=== PATIENT | male | born 1990 | race American Indian/Alaskan Native ===

== ENCOUNTER 2016-09-04 16:03 | Inpatient (IN) | payer OTHER ==
[2016-09-04] MEDS ORDERED: CARDENE DRIP 40 MG/200 ML 200 ML ONE (16:12)
[2016-09-04] MEDS: CARDENE DRIP 40 MG/200 ML 200 ML IV SCH (16:16)
[2016-09-04] MEDS ORDERED: ATIVAN ONE (16:22)
[2016-09-04] MEDS ORDERED: ATIVAN IV ONE ×2 (16:24→16:30)
[2016-09-04] MEDS ORDERED: VASELINE LIP THERAPY TP PRN (16:24)
[2016-09-04] MEDS ORDERED: KEPPRA 1,000 MG/NS 0.75% 100ML 100 ML IV ONE ×2 (16:26→16:28)
[2016-09-04] MEDS ORDERED: DILAUDID IV ONE (16:28)
[2016-09-04 16:38] LABS: Basophils % (Auto) 0.3 % (0.0-1.8); Eosinophils % (Auto) 3.5 % (0.0-4.3); Hematocrit 37.5 % (35.5-45.6); Hemoglobin 12.1 gm/dl (11.8-15.2); Mean Corpuscular HGB Conc 32 % (32-34); Mean Corpuscular Hemoglobin 27 pg (28-32); Mean Corpuscular Volume 84 fl (84-94); Platelet Count 298 K/mm3 (140-440); Red Blood Count 4.45 M/mm3 (3.65-5.03); Red Cell Distribution Width 14.6 % (13.2-15.2); White Blood Count 11.9 K/mm3 (4.5-11.0)
--- NOTE | 2016-09-04 16:39 | Emergency Department Report ---
ED Seizure HPI - General Chief Complaint: Seizure Stated Complaint: SEIZURE Time Seen by Provider: 09/04/16 16:15 Source: EMS Mode of arrival: Stretcher Limitations: Altered Mental Status - History of Present Illness Initial Comments: Patient is a 25-year-old male with history of hypertension, seizure disorder noncompliant on medications brought in by ambulance due to a seizure. Upon EMS arrival patient was found to be post total, not at his baseline of walking and talking, as soon as they arrived to the ER the patient had another tonic-clonic seizure witnessed by staff. Upon my assessment patient was not having tonic- clonic seizure and had just received 2 mg of Ativan however she did have right- sided gaze deviation. He was completely unresponsive at this time and was making sonorous upper airway sounds, drooling and had no gag reflex. Patient was intubated for airway protection. - Related Data Home Medications Medication Instructions Recorded Confirmed Last Taken Metoprolol [Lopressor] 100 mg PO BID 09/04/16 09/04/16 Unknown NIFEdipine [Nifedipine ER] 60 mg PO BID 09/04/16 09/04/16 Unknown Allergies Allergy/AdvReac Type Severity Reaction Status Date / Time No Known Allergies Allergy Verified 08/10/16 16:44 ED Review of Systems ROS: Stated complaint: SEIZURE Other details as noted in HPI Comment: Unobtainable due to pts medical conditions ED Past Medical Hx - Past Medical History Previous Medical History?: Yes Hx Hypertension: Yes Hx Asthma: Yes - Surgical History Past Surgical History?: Yes Additional Surgical History: UNKNOWN - Social History Smoking Status: Never Smoker - Medications Home Medications: Home Medications Medication Instructions Recorded Confirmed Last Taken Type Metoprolol [Lopressor] 100 mg PO BID 09/04/16 09/04/16 Unknown History NIFEdipine [Nifedipine ER] 60 mg PO BID 09/04/16 09/04/16 Unknown History ED Physical Exam - General Limitations: Altered Mental Status General appearance: alert - Eye Eye exam: Present: other (right-sided gaze deviation, pupils pinpoint) - ENT ENT exam: Present: mucous membranes moist, other (sonorous upper airway sounds, large amount of saliva in the oropharynx and coming out of the mouth) - Neck Neck exam: Absent: meningismus - Respiratory Respiratory exam: Present: normal lung sounds bilaterally. Absent: respiratory distress - Cardiovascular Cardiovascular Exam: Present: regular rate, normal rhythm - GI/Abdominal GI/Abdominal exam: Present: soft. Absent: distended, tenderness - Neurological Exam Neurological exam: Present: other (unresponsive) - Skin Skin exam: Present: intact ED Course Vital Signs 09/04/16 09/04/16 09/04/16 16:08 16:24 16:31 Temperature 98.1 F Pulse Rate 125 H 140 H 137 H Respiratory 16 16 Rate Blood Pressure 243/157 205/122 Blood Pressure 239/170 [Left] O2 Sat by Pulse 100 100 100 Oximetry 09/04/16 09/04/16 09/04/16 16:34 17:00 17:06 Temperature Pulse Rate 92 H 139 H 129 H Respiratory 26 H 23 20 Rate Blood Pressure 192/102 192/102 Blood Pressure [Left] O2 Sat by Pulse 100 100 Oximetry 09/04/16 09/04/16 09/04/16 17:16 17:48 17:58 Temperature Pulse Rate 121 H 120 H 119 H Respiratory 17 13 18 Rate Blood Pressure 162/86 162/86 164/91 Blood Pressure [Left] O2 Sat by Pulse 98 100 Oximetry 09/04/16 09/04/16 09/04/16 18:00 18:13 18:15 Temperature Pulse Rate 119 H 120 H Respiratory 17 16 16 Rate Blood Pressure 164/88 165/96 Blood Pressure [Left] O2 Sat by Pulse 100 99 100 Oximetry 09/04/16 09/04/16 09/04/16 18:30 18:38 18:45 Temperature Pulse Rate 120 H 120 H 120 H Respiratory 16 18 19 Rate Blood Pressure 162/91 162/91 166/92 Blood Pressure [Left] O2 Sat by Pulse 100 100 Oximetry 09/04/16 09/04/16 09/04/16 18:53 19:00 19:06 Temperature Pulse Rate 120 H 121 H 122 H Respiratory 17 17 16 Rate Blood Pressure 166/92 169/104 169/104 Blood Pressure [Left] O2 Sat by Pulse 100 100 Oximetry 09/04/16 09/04/16 09/04/16 19:11 19:15 19:16 Temperature 98.7 F Pulse Rate 122 H 120 H 122 H Respiratory 16 18 Rate Blood Pressure 159/87 166/104 Blood Pressure 169/104 [Left] O2 Sat by Pulse 99 99 100 Oximetry 09/04/16 09/04/16 09/04/16 19:30 19:45 20:00 Temperature Pulse Rate 118 H 118 H 119 H Respiratory 17 17 17 Rate Blood Pressure 159/84 157/83 156/88 Blood Pressure [Left] O2 Sat by Pulse 100 Oximetry 09/04/16 09/04/16 09/04/16 20:05 20:15 20:30 Temperature Pulse Rate 118 H 120 H 118 H Respiratory 20 16 17 Rate Blood Pressure 163/93 155/79 Blood Pressure 157/63 [Left] O2 Sat by Pulse 100 99 100 Oximetry 09/04/16 09/04/16 09/04/16 20:45 20:56 21:00 Temperature Pulse Rate 118 H 116 H 118 H Respiratory 17 20 18 Rate Blood Pressure 153/81 151/77 Blood Pressure 152/82 [Left] O2 Sat by Pulse 100 100 100 Oximetry 09/04/16 09/04/16 09/04/16 21:15 21:30 21:45 Temperature Pulse Rate 118 H 117 H 118 H Respiratory 17 18 18 Rate Blood Pressure 145/84 155/78 152/82 Blood Pressure [Left] O2 Sat by Pulse 100 100 Oximetry 09/04/16 09/04/16 09/04/16 22:00 22:15 22:30 Temperature Pulse Rate 116 H 117 H 117 H Respiratory 18 18 15 Rate Blood Pressure 153/81 152/80 156/87 Blood Pressure 152/83 [Left] O2 Sat by Pulse 100 100 Oximetry 09/04/16 09/04/16 09/04/16 22:45 23:20 23:30 Temperature Pulse Rate 117 H 120 H Respiratory 18 19 Rate Blood Pressure 152/83 169/87 Blood Pressure [Left] O2 Sat by Pulse 100 100 100 Oximetry 09/04/16 23:35 Temperature Pulse Rate 117 H Respiratory 20 Rate Blood Pressure Blood Pressure 156/87 [Left] O2 Sat by Pulse 100 Oximetry - Reevaluation(s) Reevaluation #1: 09/04/16 18:03 Initial labs show a very low magnesium and phosphorus, this may be a lab error but will empirically treat as this could be the cause of the patient's seizure. Patient's repeat labs showed a high magnesium and phosphate. The patient was receiving a treatment of magnesium and potassium phosphate at the time so it is unclear whether these electrolytes are actually higher low and the patient. Magnesium treatment is finished and potassium phosphate has been held with what we can redraw labs to find out the true electrolyte values. 09/06/16 02:46 Reevaluation #2: 09/04/16 19:09 Patient reexamined, bp stable with systolics in the 160s; no gaze deviation, no signs of seizure on exam - Intubation Time Out Performed: Yes Sedative: Etomidate Paralytic: Succinylcholine Laryngoscope: Marga Size: 3 ET Tube Size: 7.5 Tube Secured Depth (cm): 22 Tube Secured Location: lips Tube Placement Confirmation: visualized tube passing t, equal breath sounds bilat, no breath sounds over epi, confirmation by capnometr Patient Tolerated Procedure: well Intubation Complications: none ED Medical Decision Making - Lab Data Result diagrams: 09/05/16 04:36 09/05/16 04:36 - Medical Decision Making Patient seen immediately upon arrival into the room, intubated for airway protection, placed on a monitor, 2 large-bore IVs placed, one absent, Cardene and Ativan drip ordered, dilaudid of given for pain, will do a CT of head as well as Critical Care Time: Yes Critical care time in (mins) excluding proc time.: 30 Critical care attestation.: If time is entered above; I have spent that time in minutes in the direct care of this critically ill patient, excluding procedure time. ED Disposition Clinical Impression: Status epilepticus, Hypokalemia, Hypertensive emergency Disposition: OP ADMITTED IP TO THIS HOSP Is pt being admited?: Yes Does the pt Need Aspirin: No Condition: Critical Time of Disposition: 19:09
[2016-09-04] MEDS: ATIVAN 100 MG in NACL 0.9% 50 ML, VIAFLEX EMPTY CONTAINER 0 ML IV SCH (16:45)
[2016-09-04 16:54] LABS: Phosphorous < 0.3 mg/dL (2.5-4.5)
[2016-09-04 16:55] LABS: Alanine Aminotransferase 9 units/L (7-56); Albumin 3.8 g/dL (3.9-5); Alkaline Phosphatase 89 units/L (35-129); Anion Gap 38 mmol/L; Bilirubin,Direct < 0.2 mg/dL (0-0.2); Bilirubin,Indirect 0.5 mg/dL; Bilirubin,Total 0.7 mg/dL (0.1-1.2); Blood Urea Nitrogen 12 mg/dL (9-20); Calcium 9.3 mg/dL (8.4-10.2); Carbon Dioxide 13 mmol/L (22-30); Chloride 92.4 mmol/L (98-107); Glucose 145 mg/dL (75-100); Magnesium 0.2 mg/dL (1.7-2.3); Sodium 141 mmol/L (137-145); Total Protein 7.7 g/dL (6.3-8.2)
[2016-09-04 16:56] LABS: Potassium 2.8 mmol/L (3.6-5.0)
[2016-09-04] MEDS ORDERED: MAGNESIUM SULFATE 2GM/50ML 50 ML IV ONE (17:02)
[2016-09-04] MEDS ORDERED: CITRATE OF MAGNESIA PO ONE (17:05)
[2016-09-04 17:21] LABS: ISTAT Base Excess 2; ISTAT HCO3 26.6; ISTAT PCO2 44.3 (35-45); ISTAT PH 7.386 (7.35-7.45); ISTAT PO2 328 (80-105); ISTAT SO2 100; ISTAT TCO2 28
[2016-09-04] MEDS ORDERED: KPHOS 45 MMOL in NACL 0.9% 500 ML 500 ML IV ONE (17:30)
[2016-09-04 17:45] LABS: BUN/Creatinine Ratio 10.83; Blood Urea Nitrogen 13 mg/dL (9-20); Calcium 8.9 mg/dL (8.4-10.2); Carbon Dioxide 24 mmol/L (22-30); Chloride 89.6 mmol/L (98-107); Glucose 179 mg/dL (75-100); Magnesium 4.5 mg/dL (1.7-2.3); Phosphorous 2.7 mg/dL (2.5-4.5); Sodium 133 mmol/L (137-145)
[2016-09-04 17:49] LABS: Anion Gap 22 mmol/L; Potassium 2.9 mmol/L (3.6-5.0)
--- NOTE | 2016-09-04 18:15 | Cat Scan Report ---
FINAL REPORT EXAM: CT HEAD/BRAIN WO CON HISTORY: sz bp 222/162 TECHNIQUE: Noncontrast serial axial images from skull base to vertex. PRIORS: CT scan of the head from 08/13/2016 FINDINGS: There is no mass effect or midline shift. There are no abnormal intra or extra-axial fluid collections. Cortical sulci and lateral ventricles are within normal limits for size and configuration. Basilar cisterns are patent. No acute intracranial hemorrhage is identified. Areas of relative hypodensity are seen in the cortex and subcortical white matter of the parietal and occipital lobes. Visualized paranasal sinuses and mastoid air cells are well aerated. No acute osseous abnormality is identified. There is a punctate metallic foreign body in the scalp over the right frontal convexity. Nasogastric tube and endotracheal tube are noted in the seismic computer image. IMPRESSION: 1. No abnormal mass or acute intracranial hemorrhage is identified. 2. Areas of relative hypodensity are seen in the cortex and subcortical white matter of the parietal and occipital lobes. This could be related to posterior reversible encephalopathy syndrome in the proper clinical setting. The patient can be further assessed with MRI.
--- NOTE | 2016-09-04 18:29 | Admit Criteria Form ---
Admission Criteria Documentation: SEIZURE Clinical Indications for Admission to Inpatient Care (Place 'X' for any and all applicable criteria): Admission is indicated for seizure and ANY ONE of the following(1)(2)(3)(4)(5): [X]I. Inpatient admission required rather than observation care (Also use Seizure: Observation Care Criteria as appropriate) because of ANY ONE of the following: [X]a) Altered mental status that is severe or persistent [ ]b) New focal neurologic deficit that is severe or persistent [X]c) Metabolic disorder (eg, hypoglycemia, hyponatremia) that is severe or persistent [X]d) Recurrent seizure [ ]e) Outpatient antiseizure regimen cannot be established (eg , patient cannot tolerate medication, initiation requires inpatient care) [ ]f) Need for ongoing intravenous infusion of antiseizure medication [ ]g) Cardiac arrhythmias of immediate concern [ ]h) Cerebral bleeding, hydrocephalus, or vasospasm monitoring (14) [ ]i) Increased intracranial pressure or cerebral edema monitoring (15) [ ]j) Other treatment or monitoring requiring inpatient admission [ ]II. Status epilepticus [A] or repetitive seizures not controlled with emergent treatment (6)(8) [ ]III. Brain disorder (eg, tumor, edema, and hydrocephalus) that requiring monitoring or intervention available only at inpatient level of care. [ ]IV. Brain insult (eg, severe trauma, stroke, drug toxicity, or withdrawal) that requires monitoring or intervention available only at inpatient level of care (10)(11) Extended stay beyond goal length of stay may be needed for (22) [ ]a) Complications of status epilepticus [ ]b) Refractory status epilepticus [ ]c) Etiology-specific therapy for conditions such as [employer] infection, head injury,eclampsia, severe metabolic abnormalities, and brain tumor [ ]d) Residual neurologic damage, [ ]e) Initiation of significant change to anticonvulsant treatment [ ]f) Older patients (65 years or older) [ ]g) Patient requiring intubation (eg, to protect airway) The original [facility] [employer] content created by [facility] [employer] has been revised. The portions of the content which have been revised are identified through the use of italic text or in bold, and [facility] has neither reviewed nor approved the modified material. All other unmodified content is copyright [facility]. Please see references footnoted in the original [facility] edition 2016 Admission Criteria Met: Yes
[2016-09-04 18:32] LABS: Urine Drugs of Abuse Note Disclamer
[2016-09-04 18:51] LABS: Bilirubin,Urine NEG (Negative); Blood,Urine SM (Negative); Granular Casts,Urine 6 /LPF; Ketones,Urine NEG (Negative); Leukocyte Esterase,Urine NEG (Negative); Mucus,Urine FEW /HPF; Nitrite,Urine NEG (Negative)
[2016-09-04 18:52] LABS: BUN/Creatinine Ratio 10.76; Blood Urea Nitrogen 14 mg/dL (9-20); Calcium 9.2 mg/dL (8.4-10.2); Carbon Dioxide 27 mmol/L (22-30); Chloride 94.4 mmol/L (98-107); Glucose 164 mg/dL (75-100); Magnesium 3.4 mg/dL (1.7-2.3); Sodium 137 mmol/L (137-145)
[2016-09-04 18:54] LABS: Anion Gap 19 mmol/L; Potassium 2.9 mmol/L (3.6-5.0)
[2016-09-04 18:54] LABS: Protein,Urine >500 mg/dL (Negative)
--- NOTE | 2016-09-04 20:50 | Event Note ---
Date: 09/04/16 See H/p in reports Status epilepticus Encephalopathy S/p intubation for airway protection
[2016-09-04] MEDS ORDERED: ALUM-MAG HYDROX-SIMETH 200-200-20MG/5ML PO PRN (20:52)
[2016-09-04] MEDS ORDERED: SIMPLE SYRUP FEEDTUBE PRN ×2 (20:52)
[2016-09-04] MEDS ORDERED: PANCREAZE DR 10,500 UNIT FEEDTUBE PRN (20:52)
[2016-09-04] MEDS ORDERED: DULCOLAX PR PRN (20:52)
[2016-09-04] MEDS ORDERED: SODIUM BICARBONATE FEEDTUBE PRN (20:52)
[2016-09-04] MEDS ORDERED: DILAUDID IV PRN (20:52)
[2016-09-04] MEDS ORDERED: MILK OF MAGNESIA PO PRN (20:52)
[2016-09-04] MEDS ORDERED: KPHOS 40 MMOL in NACL 0.9% 500 ML 500 ML IV ONE (21:02)
--- NOTE | 2016-09-05 01:51 | History and Physical Report ---
CHIEF COMPLAINT: 1. Persistent seizures. 2. Altered mental status. HISTORY OF PRESENT ILLNESS: A 25-year-old -[place] male with a history of hypertension, seizure disorder, and noncompliant with medication, brought in secondary to persistent seizures. The patient was found to be in altered mental status. The patient was brought to the ER because of the altered mental status and in the ER, the patient had persistent tonic-clonic seizures and because of which the patient was intubated for protection of airway. Also his blood pressure was very high at 240/140. The patient had a tendency to aspirate and hence the intubation for airway protection. No fever, no chills. PAST MEDICAL HISTORY: Hypertension and seizure disorder. Also asthma. CURRENT MEDICATIONS: Metoprolol 100 mg b.i.d. and nifedipine 60 mg p.o. b.i.d. PAST SURGICAL HISTORY: None. SOCIAL HISTORY: Does not smoke. No alcohol, no recreational drugs. FAMILY HISTORY: Significant for hypertension. REVIEW OF SYSTEMS: CONSTITUTIONAL: No weight loss, no weight gain. Persistent seizures. HEENT: No sore throat. No postnasal drip. CARDIOVASCULAR AND RESPIRATORY SYSTEM: No shortness of breath, no chest pain, no palpitations. No cough. GASTROINTESTINAL SYSTEM: No nausea, no vomiting, no diarrhea. MUSCULOSKELETAL SSTEM: No joint pains. CENTRAL NERVOUS SYSTEM: Persistent seizures. Altered sensorium. SKIN: No rashes. A 14-point review of systems, essentially negative. PHYSICAL EXAMINATION: GENERAL: Young male, intubated. VITAL SIGNS: Blood pressure 243/157, pulse is 125, respiratory rate is 16, and sats 100%. HEENT: Unremarkable. Pupils are equal and reactive. ET tube in place. NECK: Supple, no lymphadenopathy, no thyromegaly, no carotid artery bruit. LUNGS: Clear to auscultation and percussion. Good air entry. CARDIOVASCULAR: S1, S2 heard. No gallop, no murmur, no rub. Apical impulse in left fifth intercostal space, in midclavicular line. ABDOMEN: Soft and benign. No hepatosplenomegaly. No guarding, no rigidity. Hernial orifices are normal. EXTREMITIES: Good pedal pulses. No pedal edema. CENTRAL NERVOUS SYSTEM: Unresponsive. SKIN: Normal. LABORATORY DATA: White count is 11,900, H and H are 12.1 and 37.5, and platelet count is 298,000. Sodium is 137, potassium is 2.9, chloride is 94.4, glucose is 164, phosphorus is low at 3.60, and magnesium is 3.4. Lactic acid is 1.0. ABG is significant for pH of 7.38, pCO2 of 44.3, pO2 of 328, and bicarbonate of 26. Head CT was negative. Head CT showed no abnormal mass or acute intracranial hemorrhage identified. hypodensity in the cortex and subcortical white matter of the parietal and occipital lobes, this could be related to posterior reversible encephalopathy syndrome. Needs MRI. ASSESSMENT AND PLAN: 1. Status epilepticus. The patient was started on IV Keppra 1000 mg q. 12 hours and also IV Ativan. Should be sufficient to control his seizures. The patient is not having any seizures at this point 2. Hypertensive emergency. The patient is on Cardene drip. P.o. medications are on hold. We will add Catapres TTS-3 patch. 3. Hypokalemia, being supplemented. 4. Hypophosphatemia, being supplemented. 5. Airway protection. The patient is intubated for airway protection. Continue vent management. 6. Neurology and critical care consults placed. ____ and Dr. Kelley consulted. 5. Deep venous thrombosis prophylaxis, Lovenox 40 mg subcutaneous daily. CRITICAL CARE STATEMENT: High probability of clinically significant sudden or life threatening deterioration of cardiopulmonary and neurological systems requiring my full and direct attention, intervention and personal management. The aggregate critical care time was 38 minutes. At this time is in addition to time spent performin. Requested procedures. 2. Data review and interpretation. 3. The patient's assessment and monitoring of vital signs. 4. Documentation. 5. Medication orders and management. Time spent was 38 minutes. JOB# [id number] VSM/NTS
[2016-09-05] MEDS: ATIVAN 100 MG in NACL 0.9% 50 ML, VIAFLEX EMPTY CONTAINER 0 ML IV SCH ×2 (02:43→10:57)
[2016-09-05] MEDS: D5/0.45NS 1,000 ML IV SCH (02:46)
[2016-09-05 05:00] LABS: Basophils % (Auto) 0.4 % (0.0-1.8); Eosinophils % (Auto) 1.5 % (0.0-4.3); Hematocrit 30.2 % (35.5-45.6); Hemoglobin 10.2 gm/dl (11.8-15.2); Mean Corpuscular HGB Conc 34 % (32-34); Mean Corpuscular Hemoglobin 28 pg (28-32); Mean Corpuscular Volume 81 fl (84-94); Platelet Count 269 K/mm3 (140-440); Red Blood Count 3.71 M/mm3 (3.65-5.03); Red Cell Distribution Width 14.6 % (13.2-15.2); White Blood Count 10.7 K/mm3 (4.5-11.0)
[2016-09-05 05:25] LABS: Alanine Aminotransferase 9 units/L (7-56); Albumin 3.1 g/dL (3.9-5); Albumin/Globulin Ratio 0.9 %; Alkaline Phosphatase 75 units/L (35-129); BUN/Creatinine Ratio 13.07; Bilirubin,Total 0.4 mg/dL (0.1-1.2); Blood Urea Nitrogen 17 mg/dL (9-20); Calcium 8.5 mg/dL (8.4-10.2); Carbon Dioxide 26 mmol/L (22-30); Chloride 97.5 mmol/L (98-107); Glucose 156 mg/dL (75-100); Potassium 3.1 mmol/L (3.6-5.0); Sodium 138 mmol/L (137-145); Total Protein 6.6 g/dL (6.3-8.2)
[2016-09-05 05:26] LABS: Anion Gap 18 mmol/L
[2016-09-05 06:44] LABS: ISTAT Base Excess 4; ISTAT HCO3 28.2; ISTAT PCO2 42.3 (35-45); ISTAT PH 7.431 (7.35-7.45); ISTAT PO2 178 (80-105); ISTAT SO2 100; ISTAT TCO2 29
--- NOTE | 2016-09-05 07:57 | XRay Report ---
AP CHEST History: Endotracheal tube placement. Findings: Compared to 08/13/16. The endotracheal tube is in adequate position terminating 3.7 cm superior to the west. A nasogastric tube is also visualized which terminates in the midesophagus. Please correlate with imaging consider advancement versus replacement. Heart and mediastinal structures are within normal limits for the lungs are clear. Normal bony thorax. Impression: Adequate placement of the endotracheal tube. There appears to be a nasogastric tube which terminates in the midesophagus. Normal AP chest.
[2016-09-05] MEDS ORDERED: POTASSIUM CHLORIDE FEEDTUBE SCH (08:00)
[2016-09-05] MEDS: fentaNYL DRIP Premix 100 ML IV SCH ×2 (08:37→21:53)
[2016-09-05] MEDS ORDERED: PANCREAZE DR 10,500 UNIT FEEDTUBE PRN (09:00)
[2016-09-05] MEDS ORDERED: SIMPLE SYRUP FEEDTUBE PRN ×2 (09:00)
[2016-09-05] MEDS ORDERED: SODIUM BICARBONATE FEEDTUBE PRN (09:00)
[2016-09-05] MEDS: PEPCID IV SCH ×2 (09:07→21:57)
[2016-09-05] MEDS: POTASSIUM CHLORIDE FEEDTUBE SCH ×2 (09:07→12:39)
[2016-09-05] MEDS: LOVENOX SUB-Q SCH (09:13)
[2016-09-05] MEDS: CARDENE DRIP 40 MG/200 ML 200 ML IV SCH (10:41)
[2016-09-05] MEDS: KEPPRA 1,000 MG in D5W 100 ML IV SCH ×3 (10:48→21:56)
--- NOTE | 2016-09-05 11:19 | Consultation ---
History of Present Illness Consult date: 09/05/16 Requesting physician: PEDRO KEY History of present illness: PULMONARY/CCM CONSULT NOTE (Full dictation # [id number]) Please see dictated notes for full details Medications and Allergies Allergies Allergy/AdvReac Type Severity Reaction Status Date / Time No Known Allergies Allergy Verified 08/10/16 16:44 Home Medications Medication Instructions Recorded Confirmed Last Taken Type Metoprolol [Lopressor] 100 mg PO BID 09/04/16 09/04/16 Unknown History NIFEdipine [Nifedipine ER] 60 mg PO BID 09/04/16 09/04/16 Unknown History Active Meds: Active Medications Al Hydrox/Mg Hydrox/Simethicone (Alum-Mag Hydrox-Simeth [id number]/5ml) 30 ml PO Q4H PRN PRN Reason: Indigestion Lipase/Protease/Amylase (Pancreaze Dr 10,500 Unit) 1 each FEEDTUBE PRN PRN PRN Reason: For Clogged Feeding Tube Lipase/Protease/Amylase (Pancreaze 10,500 Unit) 1 each FEEDTUBE PRN PRN PRN Reason: For Clogged Feeding Tube Bisacodyl (Dulcolax) [address] QDAY PRN PRN Reason: constipation unrelieved by MOM Enoxaparin Sodium (Lovenox) 40 mg SUB-Q QDAY PAULA Last Admin: 09/05/16 09:13 Dose: 40 mg Famotidine (Pepcid) 20 mg IV BID PAULA Last Admin: 09/05/16 09:07 Dose: 20 mg Hydromorphone HCl (Dilaudid) 0.5 mg IV Q3HR PRN PRN Reason: Pain , Severe (7-10) Hydrophilic Ointment (Vaseline Lip Therapy) 1 applic TP Q2HR PRN PRN Reason: Dry Lips Lorazepam 100 mg/ Sodium Chloride/ Miscellaneous Information 100 mls @ 1 mls/ hr IV TITR PAULA; 1 MG/HR PRN Reason: Protocol Last Admin: 09/05/16 10:57 Dose: 7 mls/hr Nicardipine/Sodium Chloride (Cardene Drip 40 Mg/200 Ml) 200 mls @ 25 mls/hr IV TITR PAULA; 5 MG/HR PRN Reason: Protocol Last Admin: 09/05/16 10:41 Dose: 50 mls/hr Dextrose/Sodium Chloride (D5/0.45ns) 1,000 mls @ 75 mls/hr IV DIRECT PAULA Last Admin: 09/05/16 02:46 Dose: 75 mls/hr Levetiracetam 1,000 mg/ (Dextrose) 110 mls @ 400 mls/hr IV Q12HR PAULA Last Admin: 09/05/16 10:48 Dose: 400 mls/hr Fentanyl Citrate (Fentanyl Drip Premix) 100 mls @ 2.722 mls/hr IV TITR PAULA; 1 MCG/KG/HR PRN Reason: Protocol Last Admin: 09/05/16 08:37 Dose: 2.722 mls/hr Magnesium Hydroxide (Milk Of Magnesia) 30 ml PO Q4H PRN PRN Reason: Constipation Multi-Ingred Cream/Lotion/Oil/Oint (Artificial Tears Ophth Oint) 1 applic OU Q4HR PRN PRN Reason: Dry Eye(s) Potassium Chloride (Potassium Chloride) 40 meq FEEDTUBE Q4H PAULA Stop: 09/05/16 12:01 Last Admin: 09/05/16 09:07 Dose: 40 meq Simple Syrup (Simple Syrup) 15 ml FEEDTUBE PRN PRN PRN Reason: Hypoglycemia Simple Syrup (Simple Syrup) 30 ml FEEDTUBE PRN PRN PRN Reason: Hypoglycemia Simple Syrup (Simple Syrup) 15 ml FEEDTUBE PRN PRN PRN Reason: Hypoglycemia Simple Syrup (Simple Syrup) 30 ml FEEDTUBE PRN PRN PRN Reason: Hypoglycemia Sodium Bicarbonate (Sodium Bicarbonate) 325 mg FEEDTUBE PRN PRN PRN Reason: For Clogged Feeding Tube Sodium Bicarbonate (Sodium Bicarbonate) 325 mg FEEDTUBE PRN PRN PRN Reason: For Clogged Feeding Tube Physical Examination Vital signs: Vital Signs Pulse Resp BP Pulse Ox 125 H 16 243/157 100 09/04/16 16:08 09/04/16 16:08 09/04/16 16:08 09/04/16 16:08 Results - Laboratory Findings CBC and BMP: 09/05/16 04:36 09/05/16 04:36 ABG POC ABG pH 7.431 (7.35-7.45) 09/05/16 05:45 POC ABG pCO2 42.3 (35-45) 09/05/16 05:45 POC ABG pO2 178 (80-105) H 09/05/16 05:45 POC ABG HCO3 28.2 09/05/16 05:45 POC ABG Total CO2 29 09/05/16 05:45 POC ABG O2 Sat 100 09/05/16 05:45 Abnormal lab findings: Abnormal Labs 09/05/16 09/05/16 09/05/16 04:36 04:36 04:36 Hgb 10.2 L Hct 30.2 L D MCV 81 L D Lymph % (Auto) 12.0 L [place] % (Auto) 11.8 H [place] # 1.3 H Seg Neutrophils % 74.3 H Seg Neutrophils # 7.9 H POC ABG pO2 Potassium 3.1 L Chloride 97.5 L Glucose 156 H Phosphorus Magnesium 2.5 H Albumin 3.1 L 09/05/16 09/05/16 04:36 05:45 Hgb Hct MCV Lymph % (Auto) [place] % (Auto) [place] # Seg Neutrophils % Seg Neutrophils # POC ABG pO2 178 H Potassium Chloride Glucose Phosphorus 5.9 H D Magnesium Albumin
[2016-09-05] MEDS ORDERED: APRESOLINE IV PRN (12:30)
[2016-09-05] MEDS: DIPRIVAN 10 MG/ML 100 ML IV SCH (12:51)
[2016-09-05] MEDS ORDERED: CATAPRES PO SCH (14:00)
--- NOTE | 2016-09-05 14:05 | Consultation ---
CONSULTING PHYSICIAN: Rory Cunha MD REASON FOR CONSULTATION: Seizure disorder, acute respiratory failure, on the mechanical ventilator. CHIEF COMPLAINT AND HISTORY OF PRESENT ILLNESS: The patient is a 25-year-old -[place] male. Apparently, he has a past medical history of hypertension and seizure disorder, noncompliance with his medications. He was brought in by ambulance from reportedly a friend's place secondary to seizures. When he came into the ER, he was postictal and then reportedly had another tonic-clonic seizure. He was intubated for airway protection and admitted to the Intensive Care Unit. Blood pressures were significantly elevated at initial presentation. We are asked to assist with his management. When I stopped by to see him, he was on multiple sedatives secondary to severe agitation during sedation holidays. He was on 4-point restraints. He was on Ativan about 5 mg per hour and had been on fentanyl at 1 mcg/kg per hour, but is being titrated downwards now. He was on about 10 mg earlier. I do not have any history of vomiting or overt aspiration. With regards to the patient's tobacco use/abuse history, he is reported as a never smoker. This really is as much of the history of presentation as I have. PAST MEDICAL HISTORY: Seizure disorder, hypertension according to the records. PAST SURGICAL HISTORY: Unknown. MEDICATIONS: He was on at the time I stopped by to see him, according to the medication administration record includes the following: He was on Lovenox 40 mg subcutaneous daily. He was on dextrose half NS at 75 mL per hour. He was on the fentanyl drip at 1 mcg/kg per hour. He was on Dilaudid 0.5 mg IV q. 3 hours p.r.n. He was on Keppra 1 gram IV q. 12 hours. He was on lorazepam drip at 5 mg an hour. He was on nicardipine at 10 mg an hour. ALLERGIES: No known drug allergies. DIET: Thin gentleman, acute weight loss or gain history is unknown. FAMILY AND SOCIAL HISTORY: Apparently, lives in the community. According to the records, no tobacco use or abuse. Illicit drug use or abuse history is unknown. REVIEW OF SYSTEMS: Unobtainable secondary to the patient's medical and mental condition since he has been here. He has had witnessed seizures; however, no gross hematochezia or melena, no gross hematuria, no hematemesis, no bloody tracheal secretions. PHYSICAL EXAMINATION: VITAL SIGNS: At presentation in the Emergency Room, he was afebrile, temperature 98.1, pulse was 125, respiratory rate was 16, blood pressure was 243/157, oxygen sats were 100%, inspired oxygen concentration was not recorded. HEAD, EYES, EARS, NOSE, AND THROAT: Pupils were equal, round, about 2 mm, very sluggishly reactive to light. Extraocular muscle movements could not be assessed. Endotracheal tube was in place, taped at the lips around 22 cm. NECK: Grossly, there were no palpable lymph nodes in the supraclavicular or submandibular lymph node chains. LUNGS: Auscultation of the lungs unremarkable. They were clear bilaterally. HEART: Heart sounds 1 and 2 are heard. Regular tachycardia at the time of my evaluation. ABDOMEN: Soft, flat. Bowel sounds are positive. Did not appear tender. EXTREMITIES: Without overt digital clubbing, cyanosis, or pedal edema. NEUROLOGIC: The exam was grossly nonfocal. LABORATORY DATA: From my review are as follows: White cell count 11,900 at presentation with a hemoglobin of 12.1, hematocrit of 37.5, and platelets 298. Arterial blood gas showed a pH of 7.39, pCO2 of 44, pO2 of 328 that was on 60% FiO2. He is currently on assist control, tidal volumes 450, rate 15, PEEP of 5. Serum sodium was 137, potassium 2.9, chloride 94, bicarbonate 27, BUN 14, creatinine 1.3, and glucose of 164. Lactic acid level was within normal limits. Liver function tests essentially within normal limits. Urinalysis was unremarkable. Urine drug screen presumptive positive for tetrahydrocannabinol. Tylenol, aspirin, and alcohol levels undetectable. Radiographic studies have been reviewed. I have also reviewed the radiologist's interpretation. CT scan mentions relative hypodensities in the cortex and subcortical white matter of the parietal and occipital lobes and recommend possible MRI. Chest x-ray is unremarkable. ET tube is, however, a little high, tip appears to be at the upper border of the clavicular heads. No gross pneumothorax, no gross bony fracture. ASSESSMENT AND PLAN: We have a young gentleman in with hypertensive emergency, but also with history of seizures. It is unclear if these seizures are related to the hypertension or if he has two separate pathologies. Respiratory king, we will keep him on full mechanical ventilatory support while we sort out his sedation issues and then begin weaning as soon as possible. There does not appear to be a primary pulmonary pathology in this case here, so hopefully should wean without trouble once we can get his mental status controlled. Aspiration precautions and other ventilator bundles will be instituted. We will advance the ET tube about 2 cm. From a cardiovascular standpoint, the Cardene drip will continue, we will reintroduce some of his old home medications as well as begin clonidine 0.1 mg p.o. q. 8 hours t.i.d., p.o. meds via the feeding tube obviously. We will wean him off the Cardene as long as systolics are less than 160-170 mmHg. I will change to a propofol drips that a good Neurology evaluation could be done when the neurologist does show up. It should also help with his blood pressure issues a little bit and Cardiology evaluation will be at the behest of the attending physician. From a GI and nutritional standpoint, oral nutrition will be the feeding modality of choice. He will be placed on GI prophylaxis. Aspiration precautions will be maintained. From a renal standpoint, no major electrolyte abnormalities. The potassium is being replaced. The hypokalemia does suggest a possible endocrine reason for his hypertension which perhaps primary aldosteronism or other etiology and he may benefit from an outpatient nephrology workup. We will follow him clinically otherwise. Inputs and outputs are being monitored. From an infectious disease standpoint, no signs and symptoms of overwhelming sepsis. No acute indication for antibiotics. We will follow him clinically. From a neurologic standpoint, Neurology has been consulted. He is on Keppra. An EEG will be ordered and we will defer to Neurology, CT of the brain findings were described above. From a general and hospital healthcare maintenance standpoint, we are going to put him on GI and DVT prophylaxis. Flu and pneumonia vaccination will be per protocol. Thank you very much for the consult Dr. Marcus. We will follow along and make further recommendations as picture progresses/becomes clearer. At this point, I have spent about 30-35 minutes of critical care time without overlap, excluding any procedural time that may be necessary. He is critically ill on life-sustaining interventions including mechanical ventilatory support at high risk for further deterioration including . JOB# [id number] JOSE ALEJANDRO/ADEN
[2016-09-05] MEDS ORDERED: AMIDATE IV ONE (15:21)
[2016-09-05] MEDS ORDERED: QUELICIN ONE (15:21)
--- NOTE | 2016-09-05 18:05 | Progress Note ---
Assessment and Plan Assessment and plan: Acute respiratory failure 2/2 seizure disorder - intubated and mechanically ventilated - Patient is on Keppra - Neurology consult placed Hypertensive emergency - Patient is on IV control blood pressure - IV hydralazine, clonidine - We will monitor Hypokalemia - Repleted Disposition - Continue ICU care History Interval history: Patient was intubated and mechanically ventilated. Hospitalist Physical - Physical exam Narrative exam: On mechanical ventilation, sedated. The patient appeared well nourished and normally developed. Vital signs as documented. Head exam is unremarkable. No scleral icterus . Neck is without jugular venous distension, thyromegaly, or carotid bruits. Lungs are clear to auscultation. Cardiac exam reveals regular rate and Rhythm. First and second heart sounds normal. No murmurs, rubs or gallops. Abdominal exam reveals normal bowel sounds, no masses, no organomegaly and no aortic enlargement. Extremities are nonedematous and both femoral and pedal pulses are normal. IMPRESS ASSOCIATE: sedated. - Constitutional Vitals: Temp Pulse Resp BP Pulse Ox 98.8 F 110 H 17 146/88 98 09/05/16 16:00 09/05/16 16:15 09/05/16 14:15 09/05/16 16:15 09/05/16 16:15 Results - Labs CBC & Chem 7: 09/05/16 04:36 09/05/16 04:36 Labs: Laboratory Last Values WBC 10.7 K/mm3 (4.5-11.0) 09/05/16 04:36 RBC 3.71 M/mm3 (3.65-5.03) 09/05/16 04:36 Hgb 10.2 gm/dl (11.8-15.2) L 09/05/16 04:36 Hct 30.2 % (35.5-45.6) L D 09/05/16 04:36 MCV 81 fl (84-94) L D 09/05/16 04:36 MCH 28 pg (28-32) 09/05/16 04:36 MCHC 34 % (32-34) 09/05/16 04:36 RDW 14.6 % (13.2-15.2) 09/05/16 04:36 Plt Count 269 K/mm3 (140-440) 09/05/16 04:36 Lymph % (Auto) 12.0 % (13.4-35.0) L 09/05/16 04:36 Long % (Auto) 11.8 % (0.0-7.3) H 09/05/16 04:36 Eos % (Auto) 1.5 % (0.0-4.3) 09/05/16 04:36 Baso % (Auto) 0.4 % (0.0-1.8) 09/05/16 04:36 Lymph # 1.3 K/mm3 (1.2-5.4) 09/05/16 04:36 Long # 1.3 K/mm3 (0.0-0.8) H 09/05/16 04:36 Eos # 0.2 K/mm3 (0.0-0.4) 09/05/16 04:36 Baso # 0.0 K/mm3 (0.0-0.1) 09/05/16 04:36 Seg Neutrophils % 74.3 % (40.0-70.0) H 09/05/16 04:36 Seg Neutrophils # 7.9 K/mm3 (1.8-7.7) H 09/05/16 04:36 POC ABG pH 7.431 (7.35-7.45) 09/05/16 05:45 POC ABG pCO2 42.3 (35-45) 09/05/16 05:45 POC ABG pO2 178 (80-105) H 09/05/16 05:45 POC ABG HCO3 28.2 09/05/16 05:45 POC ABG Total CO2 29 09/05/16 05:45 POC ABG O2 Sat 100 09/05/16 05:45 POC ABG Base Excess 4 09/05/16 05:45 FiO2 35 % 09/05/16 05:45 Sodium 138 mmol/L (137-145) 09/05/16 04:36 Potassium 3.1 mmol/L (3.6-5.0) L 09/05/16 04:36 Chloride 97.5 mmol/L (98-107) L 09/05/16 04:36 Carbon Dioxide 26 mmol/L (22-30) 09/05/16 04:36 Anion Gap 18 mmol/L 09/05/16 04:36 BUN 17 mg/dL (9-20) 09/05/16 04:36 Creatinine 1.3 mg/dL (0.8-1.5) 09/05/16 04:36 Estimated GFR > 60 ml/min 09/05/16 04:36 BUN/Creatinine Ratio 13.07 % 09/05/16 04:36 Glucose 156 mg/dL (75-100) H 09/05/16 04:36 Lactic Acid 1.0 mmol/L (0.7-2.0) 09/04/16 21:09 Calcium 8.5 mg/dL (8.4-10.2) 09/05/16 04:36 Phosphorus 5.9 mg/dL (2.5-4.5) H D 09/05/16 04:36 Magnesium 2.5 mg/dL (1.7-2.3) H 09/05/16 04:36 Total Bilirubin 0.4 mg/dL (0.1-1.2) 09/05/16 04:36 Direct Bilirubin < 0.2 mg/dL (0-0.2) 09/04/16 16:20 Indirect Bilirubin 0.5 mg/dL 09/04/16 16:20 AST 15 units/L (5-40) 09/05/16 04:36 ALT 9 units/L (7-56) 09/05/16 04:36 Alkaline Phosphatase 75 units/L (35-129) 09/05/16 04:36 Total Protein 6.6 g/dL (6.3-8.2) 09/05/16 04:36 Albumin 3.1 g/dL (3.9-5) L 09/05/16 04:36 Albumin/Globulin Ratio 0.9 % 09/05/16 04:36 TSH 2.280 mlU/mL (0.270-4.200) 09/04/16 16:20 Urine Color Yellow (Yellow) 09/04/16 16:31 Urine Turbidity Clear (Clear) 09/04/16 16:31 Urine pH 6.0 (5.0-7.0) 09/04/16 16:31 Ur Specific [place] 1.018 (1.003-1.030) 09/04/16 16:31 Urine Protein >500 mg/dL (Negative) 09/04/16 16:31 Urine Glucose (UA) Neg mg/dL (Negative) 09/04/16 16:31 Urine Ketones Neg mg/dL (Negative) 09/04/16 16:31 Urine Blood Sm (Negative) 09/04/16 16:31 Urine Nitrite Neg (Negative) 09/04/16 16:31 Urine Bilirubin Neg (Negative) 09/04/16 16:31 Urine Urobilinogen 4.0 mg/dL (<2.0) 09/04/16 16:31 Ur Leukocyte Esterase Neg (Negative) 09/04/16 16:31 Urine WBC (Auto) 4.0 /HPF (0.0-6.0) 09/04/16 16:31 Urine RBC (Auto) 6.0 /HPF (0.0-6.0) 09/04/16 16:31 U Epithel Cells (Auto) 1.0 /HPF (0-13.0) 09/04/16 16:31 Amorphous Crystals Few 09/04/16 16:31 Granular Casts 6 /LPF 09/04/16 16:31 Urine Mucus Few /HPF 09/04/16 16:31 Salicylates < 0.3 mg/dL (2.8-20.0) L 09/04/16 16:20 Urine Opiates Screen Presumptive negative 09/04/16 16:31 Urine Methadone Screen Presumptive negative 09/04/16 16:31 Acetaminophen < 15.0 ug/mL (10.0-30.0) 09/04/16 16:20 Ur Barbiturates Screen Presumptive negative 09/04/16 16:31 Ur Phencyclidine Scrn Presumptive negative 09/04/16 16:31 Ur Amphetamines Screen Presumptive negative 09/04/16 16:31 U Benzodiazepines Scrn Presumptive negative 09/04/16 16:31 Urine Cocaine Screen Presumptive negative 09/04/16 16:31 U Marijuana (THC) Screen Presumptive positive 09/04/16 16:31 Drugs of Abuse Note Disclamer 09/04/16 16:31 Plasma/Serum Alcohol < 0.01 gm% (0-0.07) 09/04/16 16:20
[2016-09-05] MEDS: LOPRESSOR PO SCH (21:57)
[2016-09-05] MEDS: ARTIFICIAL TEARS OPHTH OINT OU PRN (21:57)
[2016-09-06] MEDS: ARTIFICIAL TEARS OPHTH OINT OU PRN ×3 (02:10→20:13)
[2016-09-06 05:22] LABS: Basophils % (Auto) 0.6 % (0.0-1.8); Hemoglobin 8.2 gm/dl (11.8-15.2); Mean Corpuscular HGB Conc 33 % (32-34); Mean Corpuscular Hemoglobin 27 pg (28-32); Mean Corpuscular Volume 83 fl (84-94); Platelet Count 282 K/mm3 (140-440); Red Blood Count 3.02 M/mm3 (3.65-5.03); Red Cell Distribution Width 14.6 % (13.2-15.2); White Blood Count 7.9 K/mm3 (4.5-11.0)
[2016-09-06 05:38] LABS: BUN/Creatinine Ratio 11.87; Blood Urea Nitrogen 19 mg/dL (9-20); Calcium 8.4 mg/dL (8.4-10.2); Carbon Dioxide 24 mmol/L (22-30); Chloride 98.8 mmol/L (98-107); Glucose 112 mg/dL (75-100); Potassium 4.6 mmol/L (3.6-5.0); Sodium 135 mmol/L (137-145)
[2016-09-06 05:52] LABS: Anion Gap 17 mmol/L
[2016-09-06 06:18] LABS: ISTAT Base Excess 1; ISTAT HCO3 26.4; ISTAT PCO2 48.7 (35-45); ISTAT PH 7.341 (7.35-7.45); ISTAT PO2 96 (80-105); ISTAT SO2 97; ISTAT TCO2 28
[2016-09-06] MEDS: DIPRIVAN 10 MG/ML 100 ML IV SCH (07:40)
[2016-09-06] MEDS: D5/0.45NS 1,000 ML IV SCH ×2 (08:10→21:34)
--- NOTE | 2016-09-06 10:04 | Progress Note ---
Assessment and Plan - Patient Problems (1) Hypertensive emergency Current Visit: Yes Status: Acute Plan to address problem: - titrate cardene drip - prn hydralazine - propofol sedation will also help - analgesia (2) Status epilepticus Current Visit: Yes Status: Acute Plan to address problem: - hold other sedatives stressed again with transition to propofol - await EEG report (3) Acute respiratory failure Current Visit: Yes Status: Acute Plan to address problem: - AMS is likely rate limiting factor to extubation as i suspect should wean well otherwise - continue aspiration precautions / VAP bundles - prn bronchodilators - begin PSV trials as tolerated shortly (4) Discharge planning issues Current Visit: Yes Status: Acute Plan to address problem: - hopefully no neurologic damage and can be extubated shortly ...for now remains critically ill on life sustaining interventions including MVS and at high risk for further deterioration including .....34' CCT Subjective Date of service: 09/06/16 Principal diagnosis: Acute Respiratory Failure on MVS; AMS Interval history: Seen and examined at bedside; 24 hour events reviewed; nursing and respiratory care staff consulted; no adverse overnight events reported to me; remains on MVS ; AMS persist's but remains on fentanyl drip; awaiting neurology evaluation; No emesis or overt aspiration and no seizures Objective Vital Signs - 12hr 09/05/16 09/05/16 09/05/16 22:06 22:15 22:30 Temperature Pulse Rate 104 H 102 H 94 H Respiratory 16 16 15 Rate Blood Pressure 150/108 153/102 153/102 O2 Sat by Pulse 98 97 99 Oximetry 09/05/16 09/05/16 09/05/16 22:45 23:00 23:08 Temperature Pulse Rate 92 H 91 H 92 H Respiratory 16 16 16 Rate Blood Pressure 160/93 160/93 160/93 O2 Sat by Pulse 97 99 98 Oximetry 09/05/16 09/05/16 09/05/16 23:15 23:30 23:46 Temperature Pulse Rate 92 H 92 H 91 H Respiratory 15 16 15 Rate Blood Pressure 150/98 150/98 145/100 O2 Sat by Pulse 96 98 97 Oximetry 09/05/16 09/05/16 09/06/16 23:51 23:58 00:00 Temperature 98.9 F Pulse Rate 92 H 92 H Respiratory 15 17 Rate Blood Pressure 145/100 147/98 O2 Sat by Pulse 99 97 Oximetry 09/06/16 09/06/16 09/06/16 00:02 00:15 00:30 Temperature Pulse Rate 92 H 92 H 94 H Respiratory 15 15 15 Rate Blood Pressure 147/98 147/100 150/103 O2 Sat by Pulse 99 96 96 Oximetry 09/06/16 09/06/16 09/06/16 00:46 01:00 01:02 Temperature Pulse Rate 93 H 93 H 93 H Respiratory 15 15 16 Rate Blood Pressure 154/100 154/100 156/98 O2 Sat by Pulse 96 98 98 Oximetry 09/06/16 09/06/16 09/06/16 01:16 01:30 01:46 Temperature Pulse Rate 92 H 91 H 92 H Respiratory 15 16 14 Rate Blood Pressure 142/99 142/99 143/98 O2 Sat by Pulse 96 98 96 Oximetry 09/06/16 09/06/16 09/06/16 02:00 02:04 02:15 Temperature Pulse Rate 92 H 91 H 92 H Respiratory 15 16 16 Rate Blood Pressure 196/98 146/98 153/99 O2 Sat by Pulse 98 98 96 Oximetry 09/06/16 09/06/16 09/06/16 02:30 02:45 03:00 Temperature Pulse Rate 93 H 93 H 93 H Respiratory 15 16 15 Rate Blood Pressure 153/99 144/99 144/99 O2 Sat by Pulse 98 96 98 Oximetry 09/06/16 09/06/16 09/06/16 03:15 03:26 03:30 Temperature Pulse Rate 93 H 92 H 92 H Respiratory 16 16 16 Rate Blood Pressure 149/102 149/102 149/102 O2 Sat by Pulse 97 98 97 Oximetry 09/06/16 09/06/16 09/06/16 03:45 04:00 04:02 Temperature 98.8 F Pulse Rate 92 H 89 92 H Respiratory 15 16 16 Rate Blood Pressure 150/93 150/93 150/88 O2 Sat by Pulse 96 98 98 Oximetry 09/06/16 09/06/16 09/06/16 04:08 04:15 04:30 Temperature Pulse Rate 92 H 92 H 93 H Respiratory 16 16 16 Rate Blood Pressure 150/88 152/93 152/93 O2 Sat by Pulse 98 96 98 Oximetry 09/06/16 09/06/16 09/06/16 04:46 05:00 05:06 Temperature Pulse Rate 92 H 92 H 90 Respiratory 17 16 16 Rate Blood Pressure 147/94 148/89 150/95 O2 Sat by Pulse 96 98 97 Oximetry 09/06/16 09/06/16 09/06/16 05:15 05:30 05:46 Temperature Pulse Rate 91 H 91 H 90 Respiratory 16 15 16 Rate Blood Pressure 146/99 146/99 132/93 O2 Sat by Pulse 96 98 94 Oximetry 09/06/16 09/06/16 09/06/16 05:52 06:00 06:02 Temperature Pulse Rate 91 H 89 90 Respiratory 16 16 Rate Blood Pressure 132/93 132/93 148/104 O2 Sat by Pulse 98 97 95 Oximetry 09/06/16 09/06/16 09/06/16 06:12 06:16 06:30 Temperature Pulse Rate 91 H 90 91 H Respiratory 16 16 17 Rate Blood Pressure 148/104 154/98 154/98 O2 Sat by Pulse 97 97 94 Oximetry 09/06/16 09/06/16 09/06/16 06:45 07:00 07:15 Temperature Pulse Rate 91 H 90 91 H Respiratory 16 16 16 Rate Blood Pressure 152/102 152/102 159/96 O2 Sat by Pulse 96 97 94 Oximetry 09/06/16 09/06/16 09/06/16 07:30 07:40 07:45 Temperature Pulse Rate 88 91 H Respiratory 16 16 16 Rate Blood Pressure 159/96 151/103 O2 Sat by Pulse 96 95 Oximetry 09/06/16 09/06/16 09/06/16 08:00 08:16 08:30 Temperature 99.6 F Pulse Rate 91 H 92 H 83 Respiratory 16 17 16 Rate Blood Pressure 150/98 161/98 161/98 O2 Sat by Pulse 96 96 100 Oximetry 09/06/16 09/06/16 09/06/16 08:33 08:46 08:47 Temperature Pulse Rate 88 88 88 Respiratory 15 16 Rate Blood Pressure 152/102 151/95 151/95 O2 Sat by Pulse 98 96 98 Oximetry 09/06/16 09/06/16 09:00 09:15 Temperature Pulse Rate 87 87 Respiratory 16 17 Rate Blood Pressure 156/95 152/96 O2 Sat by Pulse 97 97 Oximetry Constitutional: no acute distress, other (sedated) Eyes: non-icteric, other (mild orbital phimosis) ENT: oropharynx moist Neck: supple, no lymphadenopathy Effort: mildly labored Ascultation: Bilateral: clear Cardiovascular: regular rate and rhythm Gastrointestinal: normoactive bowel sounds, soft, non-tender, non-distended Integumentary: normal Extremities: no cyanosis, no edema, pulses normal Neurologic: unable to assess Psychiatric: other (sedated) CBC and BMP: 09/07/16 04:48 09/07/16 04:48 ABG, PT/INR, D-dimer: ABG POC ABG pH 7.341 (7.35-7.45) L 09/06/16 05:36 POC ABG pCO2 48.7 (35-45) H 09/06/16 05:36 POC ABG pO2 96 (80-105) 09/06/16 05:36 POC ABG HCO3 26.4 09/06/16 05:36 POC ABG Total CO2 28 09/06/16 05:36 POC ABG O2 Sat 97 09/06/16 05:36 Abnormal lab findings: Abnormal Labs 09/05/16 09/05/16 09/05/16 04:36 04:36 04:36 RBC Hgb 10.2 L Hct 30.2 L D MCV 81 L D MCH Lymph % (Auto) 12.0 L [place] % (Auto) 11.8 H Lymph # [place] # 1.3 H Seg Neutrophils % 74.3 H Seg Neutrophils # 7.9 H POC ABG pH POC ABG pCO2 POC ABG pO2 Sodium Potassium 3.1 L Chloride 97.5 L Creatinine Glucose 156 H POC Glucose Phosphorus Magnesium 2.5 H Albumin 3.1 L 09/05/16 09/05/16 09/05/16 04:36 05:45 21:28 RBC Hgb Hct MCV MCH Lymph % (Auto) [place] % (Auto) Lymph # [place] # Seg Neutrophils % Seg Neutrophils # POC ABG pH POC ABG pCO2 POC ABG pO2 178 H Sodium Potassium Chloride Creatinine Glucose POC Glucose 125 H Phosphorus 5.9 H D Magnesium Albumin 09/06/16 09/06/16 09/06/16 04:51 04:51 05:36 RBC 3.02 L Hgb 8.2 L Hct 25.0 L MCV 83 L MCH 27 L Lymph % (Auto) [place] % (Auto) 12.0 H Lymph # 1.1 L [place] # 1.0 H Seg Neutrophils % Seg Neutrophils # POC ABG pH 7.341 L POC ABG pCO2 48.7 H POC ABG pO2 Sodium 135 L Potassium Chloride Creatinine 1.6 H Glucose 112 H POC Glucose Phosphorus Magnesium Albumin Chest x-ray: image reviewed
[2016-09-06] MEDS: LOPRESSOR PO SCH ×2 (10:12→21:25)
[2016-09-06] MEDS: PEPCID IV SCH ×2 (10:12→21:25)
[2016-09-06] MEDS: LOVENOX SUB-Q SCH (10:13)
[2016-09-06] MEDS: KEPPRA 1,000 MG in D5W 100 ML IV SCH ×2 (10:26→21:25)
[2016-09-06 13:54] LABS: ISTAT Base Excess -1; ISTAT HCO3 24.3; ISTAT PCO2 40.2 (35-45); ISTAT PH 7.388 (7.35-7.45); ISTAT PO2 78 (80-105); ISTAT SO2 95; ISTAT TCO2 25
[2016-09-06] MEDS: CATAPRES PO SCH ×2 (13:56→21:26)
[2016-09-06] MEDS: APRESOLINE IV PRN ×2 (13:56→16:48)
--- NOTE | 2016-09-06 16:21 | Progress Note ---
Assessment and Plan Assessment and plan: Acute respiratory failure 2/2 seizure disorder - intubated and mechanically ventilated - Patient is on Keppra - Neurology consult placed Hypertensive emergency - Patient is on IV control blood pressure - IV hydralazine, clonidine - We will monitor Hypokalemia - Repleted Acute kidney injury - will monitor BMP Anemia - No active bleeding Disposition - Continue ICU care History Interval history: Patient was intubated and mechanically ventilated. Hospitalist Physical - Physical exam Narrative exam: On mechanical ventilation, sedated. The patient appeared well nourished and normally developed. Vital signs as documented. Head exam is unremarkable. No scleral icterus . Neck is without jugular venous distension, thyromegaly, or carotid bruits. Lungs are clear to auscultation. Cardiac exam reveals regular rate and Rhythm. First and second heart sounds normal. No murmurs, rubs or gallops. Abdominal exam reveals normal bowel sounds, no masses, no organomegaly and no aortic enlargement. Extremities are nonedematous and both femoral and pedal pulses are normal. CALL CENTER SUPPORT CONSULTANT: sedated. - Constitutional Vitals: Temp Pulse Resp BP Pulse Ox 99.1 F 89 14 168/103 100 09/06/16 11:51 09/06/16 16:11 09/06/16 16:11 09/06/16 16:11 09/06/16 16:11 Results - Labs CBC & Chem 7: 09/06/16 04:51 09/06/16 04:51 Labs: Laboratory Last Values WBC 7.9 K/mm3 (4.5-11.0) 09/06/16 04:51 RBC 3.02 M/mm3 (3.65-5.03) L 09/06/16 04:51 Hgb 8.2 gm/dl (11.8-15.2) L 09/06/16 04:51 Hct 25.0 % (35.5-45.6) L 09/06/16 04:51 MCV 83 fl (84-94) L 09/06/16 04:51 MCH 27 pg (28-32) L 09/06/16 04:51 MCHC 33 % (32-34) 09/06/16 04:51 RDW 14.6 % (13.2-15.2) 09/06/16 04:51 Plt Count 282 K/mm3 (140-440) 09/06/16 04:51 Lymph % (Auto) 14.5 % (13.4-35.0) 09/06/16 04:51 [place] % (Auto) 12.0 % (0.0-7.3) H 09/06/16 04:51 Eos % (Auto) 4.0 % (0.0-4.3) 09/06/16 04:51 Baso % (Auto) 0.6 % (0.0-1.8) 09/06/16 04:51 Lymph # 1.1 K/mm3 (1.2-5.4) L 09/06/16 04:51 [place] # 1.0 K/mm3 (0.0-0.8) H 09/06/16 04:51 Eos # 0.3 K/mm3 (0.0-0.4) 09/06/16 04:51 Baso # 0.1 K/mm3 (0.0-0.1) 09/06/16 04:51 Seg Neutrophils % 68.9 % (40.0-70.0) 09/06/16 04:51 Seg Neutrophils # 5.4 K/mm3 (1.8-7.7) 09/06/16 04:51 POC ABG pH 7.388 (7.35-7.45) 09/06/16 13:45 POC ABG pCO2 40.2 (35-45) 09/06/16 13:45 POC ABG pO2 78 (80-105) L 09/06/16 13:45 POC ABG HCO3 24.3 09/06/16 13:45 POC ABG Total CO2 25 09/06/16 13:45 POC ABG O2 Sat 95 09/06/16 13:45 POC ABG Base Excess -1 09/06/16 13:45 FiO2 25 % 09/06/16 13:45 Sodium 135 mmol/L (137-145) L 09/06/16 04:51 Potassium 4.6 mmol/L (3.6-5.0) D 09/06/16 04:51 Chloride 98.8 mmol/L (98-107) 09/06/16 04:51 Carbon Dioxide 24 mmol/L (22-30) 09/06/16 04:51 Anion Gap 17 mmol/L 09/06/16 04:51 BUN 19 mg/dL (9-20) 09/06/16 04:51 Creatinine 1.6 mg/dL (0.8-1.5) H 09/06/16 04:51 Estimated GFR > 60 ml/min 09/06/16 04:51 BUN/Creatinine Ratio 11.87 % 09/06/16 04:51 Glucose 112 mg/dL (75-100) H 09/06/16 04:51 POC Glucose 125 (70-105) H 09/05/16 21:28 Lactic Acid 1.0 mmol/L (0.7-2.0) 09/04/16 21:09 Calcium 8.4 mg/dL (8.4-10.2) 09/06/16 04:51 Phosphorus 5.9 mg/dL (2.5-4.5) H D 09/05/16 04:36 Magnesium 2.5 mg/dL (1.7-2.3) H 09/05/16 04:36 Total Bilirubin 0.4 mg/dL (0.1-1.2) 09/05/16 04:36 Direct Bilirubin < 0.2 mg/dL (0-0.2) 09/04/16 16:20 Indirect Bilirubin 0.5 mg/dL 09/04/16 16:20 AST 15 units/L (5-40) 09/05/16 04:36 ALT 9 units/L (7-56) 09/05/16 04:36 Alkaline Phosphatase 75 units/L (35-129) 09/05/16 04:36 Total Protein 6.6 g/dL (6.3-8.2) 09/05/16 04:36 Albumin 3.1 g/dL (3.9-5) L 09/05/16 04:36 Albumin/Globulin Ratio 0.9 % 09/05/16 04:36 TSH 2.280 mlU/mL (0.270-4.200) 09/04/16 16:20 Urine Color Yellow (Yellow) 09/04/16 16:31 Urine Turbidity Clear (Clear) 09/04/16 16:31 Urine pH 6.0 (5.0-7.0) 09/04/16 16:31 Ur Specific [place] 1.018 (1.003-1.030) 09/04/16 16:31 Urine Protein >500 mg/dL (Negative) 09/04/16 16:31 Urine Glucose (UA) Neg mg/dL (Negative) 09/04/16 16:31 Urine Ketones Neg mg/dL (Negative) 09/04/16 16:31 Urine Blood Sm (Negative) 09/04/16 16:31 Urine Nitrite Neg (Negative) 09/04/16 16:31 Urine Bilirubin Neg (Negative) 09/04/16 16:31 Urine Urobilinogen 4.0 mg/dL (<2.0) 09/04/16 16:31 Ur Leukocyte Esterase Neg (Negative) 09/04/16 16:31 Urine WBC (Auto) 4.0 /HPF (0.0-6.0) 09/04/16 16:31 Urine RBC (Auto) 6.0 /HPF (0.0-6.0) 09/04/16 16:31 U Epithel Cells (Auto) 1.0 /HPF (0-13.0) 09/04/16 16:31 Amorphous Crystals Few 09/04/16 16:31 Granular Casts 6 /LPF 09/04/16 16:31 Urine Mucus Few /HPF 09/04/16 16:31 Salicylates < 0.3 mg/dL (2.8-20.0) L 09/04/16 16:20 Urine Opiates Screen Presumptive negative 09/04/16 16:31 Urine Methadone Screen Presumptive negative 09/04/16 16:31 Acetaminophen < 15.0 ug/mL (10.0-30.0) 09/04/16 16:20 Ur Barbiturates Screen Presumptive negative 09/04/16 16:31 Ur Phencyclidine Scrn Presumptive negative 09/04/16 16:31 Ur Amphetamines Screen Presumptive negative 09/04/16 16:31 U Benzodiazepines Scrn Presumptive negative 09/04/16 16:31 Urine Cocaine Screen Presumptive negative 09/04/16 16:31 U Marijuana (THC) Screen Presumptive positive 09/04/16 16:31 Drugs of Abuse Note Disclamer 09/04/16 16:31 Plasma/Serum Alcohol < 0.01 gm% (0-0.07) 09/04/16 16:20
--- NOTE | 2016-09-06 18:50 | XRay Report ---
FINAL REPORT PROCEDURE: XR ABDOMEN 1V AP TECHNIQUE: Abdominal radiograph, single supine AP view. HISTORY: feeding tube placement COMPARISON: No prior studies are available for comparison. FINDINGS: NG tube is seen directed into the left side of the stomach and appears to be in good position. Bowel gas pattern visualized is unremarkable. Lung bases show no acute abnormalities. IMPRESSION: NG tube in good position.
[2016-09-07] MEDS: CATAPRES PO SCH ×2 (05:43→13:56)
[2016-09-07] MEDS: ARTIFICIAL TEARS OPHTH OINT OU PRN (05:45)
[2016-09-07 05:46] LABS: BUN/Creatinine Ratio 13.33; Blood Urea Nitrogen 16 mg/dL (9-20); Calcium 8.4 mg/dL (8.4-10.2); Carbon Dioxide 22 mmol/L (22-30); Chloride 99.9 mmol/L (98-107); Glucose 105 mg/dL (75-100); Potassium 4.2 mmol/L (3.6-5.0); Sodium 138 mmol/L (137-145)
[2016-09-07 05:54] LABS: Anion Gap 20 mmol/L
[2016-09-07 06:08] LABS: ISTAT Base Excess 1; ISTAT HCO3 24.3; ISTAT PCO2 33.5 (35-45); ISTAT PH 7.468 (7.35-7.45); ISTAT PO2 107 (80-105); ISTAT SO2 99; ISTAT TCO2 25
[2016-09-07 06:14] LABS: Basophils % (Auto) 0.1 % (0.0-1.8); Eosinophils % (Auto) 0.9 % (0.0-4.3); Hematocrit 23.9 % (35.5-45.6); Hemoglobin 8.1 gm/dl (11.8-15.2); Mean Corpuscular HGB Conc 34 % (32-34); Mean Corpuscular Hemoglobin 28 pg (28-32); Mean Corpuscular Volume 83 fl (84-94); Platelet Count 272 K/mm3 (140-440); Red Cell Distribution Width 14.6 % (13.2-15.2); White Blood Count 8.7 K/mm3 (4.5-11.0)
[2016-09-07] MEDS: APRESOLINE IV PRN ×3 (07:43→23:46)
--- NOTE | 2016-09-07 10:20 | Progress Note ---
Assessment and Plan (1) Hypertensive emergency Current Visit: Yes Status: Acute Plan to address problem: - improved - prn hydralazine - titrate oral antihypertensives - analgesia (2) Status epilepticus Current Visit: Yes Status: Acute Plan to address problem: - hold other sedatives stressed again with transition to propofol - await EEG report - await neurology evaluation - MRI if no improvement (3) Acute respiratory failure Current Visit: Yes Status: Acute Plan to address problem: - AMS is likely rate limiting factor to extubation as i suspect should wean well otherwise - continue aspiration precautions / VAP bundles - prn bronchodilators - begin PSV trials as tolerated today (4) Discharge planning issues Current Visit: Yes Status: Acute Plan to address problem: - hopefully no neurologic damage and can be extubated shortly ...for now remains critically ill on life sustaining interventions including MVS and at high risk for further deterioration including .....30' CCT Subjective Date of service: 09/07/16 Principal diagnosis: Acute Respiratory Failure; Seizures Interval history: Seen and examined at bedside; 24 hour events reviewed; nursing and respiratory care staff consulted; no adverse overnight events reported to me; orbital phimosis a little more pronounced; tolerated bedside SBT well; remains mostly altered though but without active seizure activity Objective Vital Signs - 12hr 09/06/16 09/06/16 09/06/16 22:30 22:45 22:58 Temperature Pulse Rate 79 78 78 Respiratory 17 17 18 Rate Blood Pressure 148/89 146/87 146/87 O2 Sat by Pulse 99 99 99 Oximetry 09/06/16 09/06/16 09/06/16 23:00 23:04 23:15 Temperature Pulse Rate 77 77 77 Respiratory 19 17 18 Rate Blood Pressure 145/87 145/87 146/91 O2 Sat by Pulse 99 99 99 Oximetry 09/06/16 09/06/16 09/06/16 23:30 23:45 23:50 Temperature 98.1 F Pulse Rate 77 77 Respiratory 19 20 Rate Blood Pressure 151/92 155/97 O2 Sat by Pulse 100 100 Oximetry 09/06/16 09/07/16 09/07/16 23:58 00:00 00:04 Temperature Pulse Rate 77 77 78 Respiratory 20 21 21 Rate Blood Pressure 155/97 153/96 153/96 O2 Sat by Pulse 100 100 100 Oximetry 09/07/16 09/07/16 09/07/16 00:15 00:17 00:30 Temperature Pulse Rate 77 77 78 Respiratory 24 26 H Rate Blood Pressure 146/94 146/94 144/86 O2 Sat by Pulse 100 100 99 Oximetry 09/07/16 09/07/16 09/07/16 00:45 01:00 01:06 Temperature Pulse Rate 76 78 80 Respiratory 25 H 26 H 26 H Rate Blood Pressure 140/84 140/87 140/87 O2 Sat by Pulse 99 99 100 Oximetry 09/07/16 09/07/16 09/07/16 01:15 01:30 01:45 Temperature Pulse Rate 79 80 81 Respiratory 26 H 26 H 27 H Rate Blood Pressure 150/93 147/93 150/95 O2 Sat by Pulse 100 100 100 Oximetry 09/07/16 09/07/16 09/07/16 02:00 02:15 02:30 Temperature Pulse Rate 81 84 82 Respiratory 27 H 23 28 H Rate Blood Pressure 160/94 142/103 151/98 O2 Sat by Pulse 100 100 100 Oximetry 09/07/16 09/07/16 09/07/16 02:45 03:00 03:15 Temperature Pulse Rate 85 81 81 Respiratory 27 H 26 H 27 H Rate Blood Pressure 164/100 156/101 156/101 O2 Sat by Pulse 100 100 100 Oximetry 09/07/16 09/07/16 09/07/16 03:22 03:30 03:45 Temperature Pulse Rate 83 83 84 Respiratory 27 H 27 H 27 H Rate Blood Pressure 156/101 150/97 149/97 O2 Sat by Pulse 99 99 99 Oximetry 09/07/16 09/07/16 09/07/16 04:00 04:12 04:15 Temperature 98.2 F Pulse Rate 86 86 85 Respiratory 29 H 29 H 21 Rate Blood Pressure 158/100 158/100 170/109 O2 Sat by Pulse 99 99 100 Oximetry 09/07/16 09/07/16 09/07/16 04:16 04:30 04:45 Temperature Pulse Rate 87 88 89 Respiratory 27 H 29 H 27 H Rate Blood Pressure 170/109 169/112 173/111 O2 Sat by Pulse 100 99 100 Oximetry 09/07/16 09/07/16 09/07/16 04:47 05:00 05:06 Temperature Pulse Rate 87 88 92 H Respiratory 25 H 25 H Rate Blood Pressure 173/111 172/110 172/110 O2 Sat by Pulse 100 100 100 Oximetry 09/07/16 09/07/16 09/07/16 05:15 05:30 05:43 Temperature Pulse Rate 87 91 H 88 Respiratory 27 H 27 H Rate Blood Pressure 168/111 168/111 159/119 O2 Sat by Pulse 99 100 Oximetry 09/07/16 09/07/16 09/07/16 05:46 06:00 06:02 Temperature Pulse Rate 87 84 85 Respiratory 27 H 28 H 28 H Rate Blood Pressure 159/119 166/102 166/102 O2 Sat by Pulse 100 98 97 Oximetry 09/07/16 09/07/16 09/07/16 06:30 07:00 07:30 Temperature Pulse Rate 80 78 79 Respiratory 27 H 29 H 29 H Rate Blood Pressure 147/89 149/98 174/118 O2 Sat by Pulse 98 98 100 Oximetry 09/07/16 09/07/16 09/07/16 07:32 07:43 07:55 Temperature Pulse Rate 78 79 90 Respiratory 28 H Rate Blood Pressure 174/118 174/118 174/118 O2 Sat by Pulse 100 100 Oximetry 09/07/16 09/07/16 09/07/16 08:00 08:15 08:30 Temperature 100.6 F H Pulse Rate 92 H 102 H 98 H Respiratory 27 H 30 H 37 H Rate Blood Pressure 147/79 147/79 138/77 O2 Sat by Pulse 99 98 98 Oximetry 09/07/16 09/07/16 09/07/16 09:00 09:30 10:00 Temperature Pulse Rate 95 H 98 H 93 H Respiratory 36 H 38 H 37 H Rate Blood Pressure 138/74 124/75 132/70 O2 Sat by Pulse 98 98 99 Oximetry Constitutional: no acute distress, lethargic Eyes: non-icteric ENT: oropharynx moist Neck: supple, no lymphadenopathy Effort: mildly labored Ascultation: Bilateral: rhonchi Cardiovascular: regular rate and rhythm Gastrointestinal: normoactive bowel sounds, soft, non-tender, non-distended Integumentary: normal Extremities: no cyanosis, no edema, pulses normal, no ischemia or petechiae Neurologic: unable to assess Psychiatric: other (unable to assess) CBC and BMP: 09/07/16 04:48 09/07/16 04:48 ABG, PT/INR, D-dimer: ABG POC ABG pH 7.468 (7.35-7.45) H 09/07/16 05:49 POC ABG pCO2 33.5 (35-45) L 09/07/16 05:49 POC ABG pO2 107 (80-105) H 09/07/16 05:49 POC ABG HCO3 24.3 09/07/16 05:49 POC ABG Total CO2 25 09/07/16 05:49 POC ABG O2 Sat 99 09/07/16 05:49 Abnormal lab findings: Abnormal Labs 09/05/16 09/05/16 09/05/16 04:36 04:36 04:36 RBC Hgb 10.2 L Hct 30.2 L D MCV 81 L D MCH Lymph % (Auto) 12.0 L [place] % (Auto) 11.8 H Lymph # [place] # 1.3 H Seg Neutrophils % 74.3 H Seg Neutrophils # 7.9 H POC ABG pH POC ABG pCO2 POC ABG pO2 Sodium Potassium 3.1 L Chloride 97.5 L Creatinine Glucose 156 H POC Glucose Phosphorus Magnesium 2.5 H Total Creatine Kinase Albumin 3.1 L 09/05/16 09/05/16 09/05/16 04:36 05:45 21:28 RBC Hgb Hct MCV MCH Lymph % (Auto) [place] % (Auto) Lymph # [place] # Seg Neutrophils % Seg Neutrophils # POC ABG pH POC ABG pCO2 POC ABG pO2 178 H Sodium Potassium Chloride Creatinine Glucose POC Glucose 125 H Phosphorus 5.9 H D Magnesium Total Creatine Kinase Albumin 09/06/16 09/06/16 09/06/16 04:51 04:51 05:36 RBC 3.02 L Hgb 8.2 L Hct 25.0 L MCV 83 L MCH 27 L Lymph % (Auto) [place] % (Auto) 12.0 H Lymph # 1.1 L [place] # 1.0 H Seg Neutrophils % Seg Neutrophils # POC ABG pH 7.341 L POC ABG pCO2 48.7 H POC ABG pO2 Sodium 135 L Potassium Chloride Creatinine 1.6 H Glucose 112 H POC Glucose Phosphorus Magnesium Total Creatine Kinase Albumin 09/06/16 09/06/16 09/06/16 13:45 21:54 21:58 RBC Hgb Hct MCV MCH Lymph % (Auto) [place] % (Auto) Lymph # [place] # Seg Neutrophils % Seg Neutrophils # POC ABG pH POC ABG pCO2 POC ABG pO2 78 L Sodium Potassium Chloride Creatinine Glucose POC Glucose 141 H Phosphorus Magnesium Total Creatine Kinase 663 H Albumin 09/07/16 09/07/16 09/07/16 04:48 04:48 05:49 RBC 2.90 L Hgb 8.1 L Hct 23.9 L MCV 83 L MCH Lymph % (Auto) 8.9 L [place] % (Auto) 10.4 H Lymph # 0.8 L [place] # 0.9 H Seg Neutrophils % 79.7 H Seg Neutrophils # POC ABG pH 7.468 H POC ABG pCO2 33.5 L POC ABG pO2 107 H Sodium Potassium Chloride Creatinine Glucose 105 H POC Glucose Phosphorus Magnesium Total Creatine Kinase Albumin Chest x-ray: image reviewed
[2016-09-07] MEDS: LOPRESSOR PO SCH (10:21)
[2016-09-07] MEDS: PEPCID PO SCH (10:22)
[2016-09-07] MEDS: KEPPRA PO SCH (10:22)
[2016-09-07] MEDS: LOVENOX SUB-Q SCH (10:22)
--- NOTE | 2016-09-07 10:48 | XRay Report ---
CHEST ONE VIEW INDICATION: Fever. Patient on ventilator. COMPARISON: 09/04/2016. FINDINGS: Portable, single, frontal chest radiograph demonstrates interval esophagogastric tube advancement with its side-port now approximately 4 cm beyond the GE junction and its tip likely in the mid stomach, extending below the inferior radiographic margin. Unremarkable endotracheal tube and cardiomediastinal silhouette. Clear lungs. Intact bones. Extrinsic EKG leads. CONCLUSION: No acute disease in the chest with interval esophagogastric tube advancement noted, as described. Thank you for the opportunity to participate in this patient's care.
--- NOTE | 2016-09-07 13:37 | Progress Note ---
Assessment and Plan Assessment and plan: Acute respiratory failure 2/2 seizure disorder - intubated and mechanically ventilated - Patient is on Keppra - Neurology consult placed - Chest x-ray normal Hypertensive emergency - Patient is on IV control blood pressure - IV hydralazine, clonidine - We will monitor Hypokalemia - Repleted Acute kidney injury - will monitor BMP Anemia - No active bleeding Disposition - Continue ICU care Disposition Plan: continue ICU care History Interval history: Patient was intubated and mechanically ventilated. Patient is off sedation but still not alert and oriented. Hospitalist Physical - Physical exam Narrative exam: On mechanical ventilation, off sedation. Vital signs as documented. Head exam is unremarkable. No scleral icterus . Neck is without jugular venous distension, thyromegaly, or carotid bruits. Lungs are clear to auscultation. Cardiac exam reveals regular rate and Rhythm. First and second heart sounds normal. No murmurs, rubs or gallops. Abdominal exam reveals normal bowel sounds, no masses, no organomegaly and no aortic enlargement. Extremities are nonedematous and both femoral and pedal pulses are normal. MANAGER CARDIOVASCULAR: lethargic. - Constitutional Vitals: Temp Pulse Resp BP Pulse Ox 100.6 F H 96 H 31 H 160/102 99 09/07/16 08:00 09/07/16 11:00 09/07/16 11:00 09/07/16 11:00 09/07/16 11:00 Results - Labs CBC & Chem 7: 09/07/16 04:48 09/07/16 04:48 Labs: Laboratory Last Values WBC 8.7 K/mm3 (4.5-11.0) 09/07/16 04:48 RBC 2.90 M/mm3 (3.65-5.03) L 09/07/16 04:48 Hgb 8.1 gm/dl (11.8-15.2) L 09/07/16 04:48 Hct 23.9 % (35.5-45.6) L 09/07/16 04:48 MCV 83 fl (84-94) L 09/07/16 04:48 MCH 28 pg (28-32) 09/07/16 04:48 MCHC 34 % (32-34) 09/07/16 04:48 RDW 14.6 % (13.2-15.2) 09/07/16 04:48 Plt Count 272 K/mm3 (140-440) 09/07/16 04:48 Lymph % (Auto) 8.9 % (13.4-35.0) L 09/07/16 04:48 [place] % (Auto) 10.4 % (0.0-7.3) H 09/07/16 04:48 Eos % (Auto) 0.9 % (0.0-4.3) 09/07/16 04:48 Baso % (Auto) 0.1 % (0.0-1.8) 09/07/16 04:48 Lymph # 0.8 K/mm3 (1.2-5.4) L 09/07/16 04:48 [place] # 0.9 K/mm3 (0.0-0.8) H 09/07/16 04:48 Eos # 0.1 K/mm3 (0.0-0.4) 09/07/16 04:48 Baso # 0.0 K/mm3 (0.0-0.1) 09/07/16 04:48 Seg Neutrophils % 79.7 % (40.0-70.0) H 09/07/16 04:48 Seg Neutrophils # 7.0 K/mm3 (1.8-7.7) 09/07/16 04:48 POC ABG pH 7.468 (7.35-7.45) H 09/07/16 05:49 POC ABG pCO2 33.5 (35-45) L 09/07/16 05:49 POC ABG pO2 107 (80-105) H 09/07/16 05:49 POC ABG HCO3 24.3 09/07/16 05:49 POC ABG Total CO2 25 09/07/16 05:49 POC ABG O2 Sat 99 09/07/16 05:49 POC ABG Base Excess 1 09/07/16 05:49 FiO2 25 % 09/07/16 05:49 Sodium 138 mmol/L (137-145) 09/07/16 04:48 Potassium 4.2 mmol/L (3.6-5.0) 09/07/16 04:48 Chloride 99.9 mmol/L (98-107) 09/07/16 04:48 Carbon Dioxide 22 mmol/L (22-30) 09/07/16 04:48 Anion Gap 20 mmol/L 09/07/16 04:48 BUN 16 mg/dL (9-20) 09/07/16 04:48 Creatinine 1.2 mg/dL (0.8-1.5) 09/07/16 04:48 Estimated GFR > 60 ml/min 09/07/16 04:48 BUN/Creatinine Ratio 13.33 % 09/07/16 04:48 Glucose 105 mg/dL (75-100) H 09/07/16 04:48 POC Glucose 141 (70-105) H 09/06/16 21:54 Lactic Acid 1.0 mmol/L (0.7-2.0) 09/04/16 21:09 Calcium 8.4 mg/dL (8.4-10.2) 09/07/16 04:48 Phosphorus 5.9 mg/dL (2.5-4.5) H D 09/05/16 04:36 Magnesium 2.5 mg/dL (1.7-2.3) H 09/05/16 04:36 Total Bilirubin 0.4 mg/dL (0.1-1.2) 09/05/16 04:36 Direct Bilirubin < 0.2 mg/dL (0-0.2) 09/04/16 16:20 Indirect Bilirubin 0.5 mg/dL 09/04/16 16:20 AST 15 units/L (5-40) 09/05/16 04:36 ALT 9 units/L (7-56) 09/05/16 04:36 Alkaline Phosphatase 75 units/L (35-129) 09/05/16 04:36 Total Creatine Kinase 663 units/L (55-170) H 09/06/16 21:58 Total Protein 6.6 g/dL (6.3-8.2) 09/05/16 04:36 Albumin 3.1 g/dL (3.9-5) L 09/05/16 04:36 Albumin/Globulin Ratio 0.9 % 09/05/16 04:36 TSH 2.280 mlU/mL (0.270-4.200) 09/04/16 16:20 Urine Color Yellow (Yellow) 09/04/16 16:31 Urine Turbidity Clear (Clear) 09/04/16 16:31 Urine pH 6.0 (5.0-7.0) 09/04/16 16:31 Ur Specific [place] 1.018 (1.003-1.030) 09/04/16 16:31 Urine Protein >500 mg/dL (Negative) 09/04/16 16:31 Urine Glucose (UA) Neg mg/dL (Negative) 09/04/16 16:31 Urine Ketones Neg mg/dL (Negative) 09/04/16 16:31 Urine Blood Sm (Negative) 09/04/16 16:31 Urine Nitrite Neg (Negative) 09/04/16 16:31 Urine Bilirubin Neg (Negative) 09/04/16 16:31 Urine Urobilinogen 4.0 mg/dL (<2.0) 09/04/16 16:31 Ur Leukocyte Esterase Neg (Negative) 09/04/16 16:31 Urine WBC (Auto) 4.0 /HPF (0.0-6.0) 09/04/16 16:31 Urine RBC (Auto) 6.0 /HPF (0.0-6.0) 09/04/16 16:31 U Epithel Cells (Auto) 1.0 /HPF (0-13.0) 09/04/16 16:31 Amorphous Crystals Few 09/04/16 16:31 Granular Casts 6 /LPF 09/04/16 16:31 Urine Mucus Few /HPF 09/04/16 16:31 Salicylates < 0.3 mg/dL (2.8-20.0) L 09/04/16 16:20 Urine Opiates Screen Presumptive negative 09/04/16 16:31 Urine Methadone Screen Presumptive negative 09/04/16 16:31 Acetaminophen < 15.0 ug/mL (10.0-30.0) 09/04/16 16:20 Ur Barbiturates Screen Presumptive negative 09/04/16 16:31 Ur Phencyclidine Scrn Presumptive negative 09/04/16 16:31 Ur Amphetamines Screen Presumptive negative 09/04/16 16:31 U Benzodiazepines Scrn Presumptive negative 09/04/16 16:31 Urine Cocaine Screen Presumptive negative 09/04/16 16:31 U Marijuana (THC) Screen Presumptive positive 09/04/16 16:31 Drugs of Abuse Note Disclamer 09/04/16 16:31 Plasma/Serum Alcohol < 0.01 gm% (0-0.07) 09/04/16 16:20 - Imaging and Cardiology EKG: image reviewed (I reviewed the chest x-ray and no acute cardiopulmonary process identified)
[2016-09-07] MEDS: DILAUDID IV PRN (22:24)
--- NOTE | 2016-09-07 23:35 | XRay Report ---
FINAL REPORT PROCEDURE: XR ABDOMEN 1V AP TECHNIQUE: Abdominal radiograph, single supine AP view. HISTORY: dobhoff placement COMPARISON: 09/06/2016 FINDINGS: Bowel gas pattern:Nonobstructive. Masses or calcifications:None. Bony structures:No significant abnormality. Other:The feeding tube ends in the mid stomach. IMPRESSION: The feeding tube ends in the mid stomach
[2016-09-08] MEDS: LOPRESSOR PO SCH ×3 (00:52→22:11)
[2016-09-08] MEDS: KEPPRA PO SCH ×3 (00:52→22:11)
[2016-09-08] MEDS: PEPCID PO SCH ×3 (00:53→22:12)
[2016-09-08] MEDS: CATAPRES PO SCH ×4 (00:53→22:12)
[2016-09-08 09:18] LABS: Basophils % (Auto) 0.1 % (0.0-1.8); Eosinophils % (Auto) 1.7 % (0.0-4.3); Hematocrit 22.9 % (35.5-45.6); Hemoglobin 7.6 gm/dl (11.8-15.2); Mean Corpuscular HGB Conc 33 % (32-34); Mean Corpuscular Hemoglobin 27 pg (28-32); Mean Corpuscular Volume 82 fl (84-94); Platelet Count 313 K/mm3 (140-440); Red Blood Count 2.79 M/mm3 (3.65-5.03); Red Cell Distribution Width 14.9 % (13.2-15.2); White Blood Count 8.5 K/mm3 (4.5-11.0)
[2016-09-08 09:42] LABS: BUN/Creatinine Ratio 15.45; Blood Urea Nitrogen 17 mg/dL (9-20); Calcium 8.4 mg/dL (8.4-10.2); Carbon Dioxide 25 mmol/L (22-30); Glucose 106 mg/dL (75-100)
[2016-09-08 09:43] LABS: Anion Gap 16 mmol/L; Chloride 97.4 mmol/L (98-107); Potassium 4.2 mmol/L (3.6-5.0); Sodium 134 mmol/L (137-145)
[2016-09-08] MEDS: LOVENOX SUB-Q SCH (10:05)
[2016-09-08 11:57] LABS: ISTAT Base Excess 3; ISTAT HCO3 26.4; ISTAT PCO2 36.2 (35-45); ISTAT PH 7.471 (7.35-7.45); ISTAT PO2 101 (80-105); ISTAT SO2 98; ISTAT TCO2 27
--- NOTE | 2016-09-08 14:02 | Progress Note ---
Assessment and Plan - Patient Problems (1) Hypertensive emergency Current Visit: Yes Status: Acute Plan to address problem: - improved - continue prn hydralazine - continue oral antihypertensives - analgesia (2) Status epilepticus Current Visit: Yes Status: Acute Plan to address problem: - hold other sedatives stressed again with transition to propofol - are-ordered EEG stat as could not find prior order in chart - await neurology evaluation - will get a stat MRI in meantime (3) Acute respiratory failure Current Visit: Yes Status: Acute Plan to address problem: - AMS is still rate limiting factor to extubation as i suspect should wean well otherwise - continue aspiration precautions / VAP bundles - prn bronchodilators - continue PSV trials as tolerated today (4) Discharge planning issues Current Visit: Yes Status: Acute Plan to address problem: - hopefully no permanent neurologic damage and can be extubated shortly ...for now remains critically ill on life sustaining interventions including MVS and at high risk for further deterioration including .....34' CCT Subjective Date of service: 09/08/16 Principal diagnosis: Acute Respiratory Failure; Seizures Interval history: Seen and examined at bedside; 24 hour events reviewed; nursing and respiratory care staff consulted; no adverse overnight events reported to me; remains on MVS ; tolerating PSV trials well however mental status remains altered; he does have spontaneous but not purposeful movements to all extremities at this point Objective Vital Signs - 12hr 09/08/16 09/08/16 09/08/16 02:30 03:00 03:12 Temperature Pulse Rate 79 79 78 Pulse Rate [ From Monitor] Respiratory 22 22 Rate Blood Pressure 135/81 156/102 156/102 O2 Sat by Pulse 100 100 100 Oximetry 09/08/16 09/08/16 09/08/16 03:32 04:00 04:30 Temperature 98.4 F Pulse Rate 78 79 79 Pulse Rate [ From Monitor] Respiratory 24 23 23 Rate Blood Pressure 143/84 137/87 140/90 O2 Sat by Pulse 100 100 100 Oximetry 09/08/16 09/08/16 09/08/16 05:00 05:16 05:30 Temperature Pulse Rate 86 88 92 H Pulse Rate [ 86 From Monitor] Respiratory 25 H 26 H 26 H Rate Blood Pressure 136/84 136/84 146/92 O2 Sat by Pulse 100 100 100 Oximetry 09/08/16 09/08/16 09/08/16 06:00 06:30 06:50 Temperature Pulse Rate 84 87 85 Pulse Rate [ From Monitor] Respiratory 25 H 26 H 28 H Rate Blood Pressure 145/86 137/88 137/88 O2 Sat by Pulse 100 100 100 Oximetry 09/08/16 09/08/16 09/08/16 07:00 07:30 07:44 Temperature Pulse Rate 88 83 88 Pulse Rate [ From Monitor] Respiratory 26 H 26 H 26 H Rate Blood Pressure 147/96 157/89 157/89 O2 Sat by Pulse 100 100 100 Oximetry 09/08/16 09/08/16 09/08/16 07:48 08:00 08:02 Temperature 99.8 F H Pulse Rate 88 82 85 Pulse Rate [ 79 From Monitor] Respiratory 23 27 H Rate Blood Pressure 157/89 135/83 139/79 O2 Sat by Pulse 100 100 Oximetry 09/08/16 09/08/16 09/08/16 08:30 09:00 09:30 Temperature Pulse Rate 84 80 83 Pulse Rate [ From Monitor] Respiratory 26 H 27 H 27 H Rate Blood Pressure 143/84 133/85 135/83 O2 Sat by Pulse 100 100 100 Oximetry 09/08/16 09/08/16 09/08/16 09:46 10:00 10:06 Temperature Pulse Rate 81 83 82 Pulse Rate [ From Monitor] Respiratory 20 26 H Rate Blood Pressure 135/83 144/87 144/87 O2 Sat by Pulse 100 99 Oximetry 09/08/16 09/08/16 09/08/16 10:30 11:00 11:22 Temperature Pulse Rate 82 79 78 Pulse Rate [ From Monitor] Respiratory 25 H 26 H 22 Rate Blood Pressure 137/84 133/75 133/75 O2 Sat by Pulse 100 100 100 Oximetry 09/08/16 09/08/16 09/08/16 11:30 11:44 12:00 Temperature 100.0 F H Pulse Rate 79 78 80 Pulse Rate [ From Monitor] Respiratory 21 26 H 22 Rate Blood Pressure 151/95 151/95 151/94 O2 Sat by Pulse 100 100 100 Oximetry 09/08/16 09/08/16 12:30 13:00 Temperature Pulse Rate 81 78 Pulse Rate [ From Monitor] Respiratory 19 17 Rate Blood Pressure 141/88 138/94 O2 Sat by Pulse 100 100 Oximetry Constitutional: no acute distress, lethargic Eyes: non-icteric ENT: oropharynx moist Neck: supple, no lymphadenopathy Effort: mildly labored Ascultation: Bilateral: rhonchi Cardiovascular: regular rate and rhythm Gastrointestinal: normoactive bowel sounds, soft, non-tender, non-distended Integumentary: normal Extremities: no cyanosis, no edema, pulses normal, no ischemia or petechiae Neurologic: unable to assess Psychiatric: other (unable to assess) CBC and BMP: 09/08/16 09:06 09/08/16 09:06 ABG, PT/INR, D-dimer: ABG POC ABG pH 7.471 (7.35-7.45) H 09/08/16 11:40 POC ABG pCO2 36.2 (35-45) 09/08/16 11:40 POC ABG pO2 101 (80-105) 09/08/16 11:40 POC ABG HCO3 26.4 09/08/16 11:40 POC ABG Total CO2 27 09/08/16 11:40 POC ABG O2 Sat 98 09/08/16 11:40 Abnormal lab findings: Abnormal Labs 09/05/16 09/05/16 09/05/16 04:36 04:36 04:36 RBC Hgb 10.2 L Hct 30.2 L D MCV 81 L D MCH Lymph % (Auto) 12.0 L [place] % (Auto) 11.8 H Lymph # [place] # 1.3 H Seg Neutrophils % 74.3 H Seg Neutrophils # 7.9 H POC ABG pH POC ABG pCO2 POC ABG pO2 Sodium Potassium 3.1 L Chloride 97.5 L Creatinine Glucose 156 H POC Glucose Phosphorus Magnesium 2.5 H Total Creatine Kinase Albumin 3.1 L 09/05/16 09/05/16 09/05/16 04:36 05:45 21:28 RBC Hgb Hct MCV MCH Lymph % (Auto) [place] % (Auto) Lymph # [place] # Seg Neutrophils % Seg Neutrophils # POC ABG pH POC ABG pCO2 POC ABG pO2 178 H Sodium Potassium Chloride Creatinine Glucose POC Glucose 125 H Phosphorus 5.9 H D Magnesium Total Creatine Kinase Albumin 09/06/16 09/06/16 09/06/16 04:51 04:51 05:36 RBC 3.02 L Hgb 8.2 L Hct 25.0 L MCV 83 L MCH 27 L Lymph % (Auto) [place] % (Auto) 12.0 H Lymph # 1.1 L [place] # 1.0 H Seg Neutrophils % Seg Neutrophils # POC ABG pH 7.341 L POC ABG pCO2 48.7 H POC ABG pO2 Sodium 135 L Potassium Chloride Creatinine 1.6 H Glucose 112 H POC Glucose Phosphorus Magnesium Total Creatine Kinase Albumin 09/06/16 09/06/16 09/06/16 13:45 21:54 21:58 RBC Hgb Hct MCV MCH Lymph % (Auto) [place] % (Auto) Lymph # [place] # Seg Neutrophils % Seg Neutrophils # POC ABG pH POC ABG pCO2 POC ABG pO2 78 L Sodium Potassium Chloride Creatinine Glucose POC Glucose 141 H Phosphorus Magnesium Total Creatine Kinase 663 H Albumin 09/07/16 09/07/16 09/07/16 04:48 04:48 05:49 RBC 2.90 L Hgb 8.1 L Hct 23.9 L MCV 83 L MCH Lymph % (Auto) 8.9 L [place] % (Auto) 10.4 H Lymph # 0.8 L [place] # 0.9 H Seg Neutrophils % 79.7 H Seg Neutrophils # POC ABG pH 7.468 H POC ABG pCO2 33.5 L POC ABG pO2 107 H Sodium Potassium Chloride Creatinine Glucose 105 H POC Glucose Phosphorus Magnesium Total Creatine Kinase Albumin 09/08/16 09/08/16 09/08/16 09:06 09:06 11:40 RBC 2.79 L Hgb 7.6 L Hct 22.9 L MCV 82 L MCH 27 L Lymph % (Auto) 8.6 L [place] % (Auto) 10.3 H Lymph # 0.7 L [place] # 0.9 H Seg Neutrophils % 79.3 H Seg Neutrophils # POC ABG pH 7.471 H POC ABG pCO2 POC ABG pO2 Sodium 134 L Potassium Chloride 97.4 L Creatinine Glucose 106 H POC Glucose Phosphorus Magnesium Total Creatine Kinase Albumin
--- NOTE | 2016-09-08 14:40 | Progress Note ---
Assessment and Plan Assessment and plan: Acute respiratory failure 2/2 seizure disorder - intubated and mechanically ventilated - Patient is on Keppra - Neurology consult placed - Chest x-ray normal Hypertensive emergency - Patient is on IV medications to control blood pressure - IV hydralazine, clonidine - We will monitor Hypokalemia - Repleted Acute kidney injury - Resolved Anemia - No active bleeding Disposition - Continue ICU care History Interval history: Patient was intubated and mechanically ventilated. Patient is off sedation but still not alert and oriented. His mother was in the room when I evaluated him. She said sometimes he is responding. Hospitalist Physical - Physical exam Narrative exam: On mechanical ventilation, off sedation. Vital signs as documented. Head exam is unremarkable. Eyes: swollen , there is whitish tissue on the lower eyelid bilaterally, doesn' t look like it is infected. Neck is without jugular venous distension, thyromegaly, or carotid bruits. Lungs are clear to auscultation. Cardiac exam reveals regular rate and Rhythm. First and second heart sounds normal. No murmurs, rubs or gallops. Abdominal exam reveals normal bowel sounds, no masses, no organomegaly and no aortic enlargement. Extremities are nonedematous and both femoral and pedal pulses are normal. [employer]: lethargic. - Constitutional Vitals: Temp Pulse Resp BP Pulse Ox 100.0 F H 78 17 138/94 100 09/08/16 12:00 09/08/16 13:00 09/08/16 13:00 09/08/16 13:00 09/08/16 13:00 Results - Labs CBC & Chem 7: 09/08/16 09:06 09/08/16 09:06 Labs: Laboratory Last Values WBC 8.5 K/mm3 (4.5-11.0) 09/08/16 09:06 RBC 2.79 M/mm3 (3.65-5.03) L 09/08/16 09:06 Hgb 7.6 gm/dl (11.8-15.2) L 09/08/16 09:06 Hct 22.9 % (35.5-45.6) L 09/08/16 09:06 MCV 82 fl (84-94) L 09/08/16 09:06 MCH 27 pg (28-32) L 09/08/16 09:06 MCHC 33 % (32-34) 09/08/16 09:06 RDW 14.9 % (13.2-15.2) 09/08/16 09:06 Plt Count 313 K/mm3 (140-440) 09/08/16 09:06 Lymph % (Auto) 8.6 % (13.4-35.0) L 09/08/16 09:06 [place] % (Auto) 10.3 % (0.0-7.3) H 09/08/16 09:06 Eos % (Auto) 1.7 % (0.0-4.3) 09/08/16 09:06 Baso % (Auto) 0.1 % (0.0-1.8) 09/08/16 09:06 Lymph # 0.7 K/mm3 (1.2-5.4) L 09/08/16 09:06 [place] # 0.9 K/mm3 (0.0-0.8) H 09/08/16 09:06 Eos # 0.1 K/mm3 (0.0-0.4) 09/08/16 09:06 Baso # 0.0 K/mm3 (0.0-0.1) 09/08/16 09:06 Seg Neutrophils % 79.3 % (40.0-70.0) H 09/08/16 09:06 Seg Neutrophils # 6.8 K/mm3 (1.8-7.7) 09/08/16 09:06 POC ABG pH 7.471 (7.35-7.45) H 09/08/16 11:40 POC ABG pCO2 36.2 (35-45) 09/08/16 11:40 POC ABG pO2 101 (80-105) 09/08/16 11:40 POC ABG HCO3 26.4 09/08/16 11:40 POC ABG Total CO2 27 09/08/16 11:40 POC ABG O2 Sat 98 09/08/16 11:40 POC ABG Base Excess 3 09/08/16 11:40 FiO2 25 % 09/08/16 11:40 Sodium 134 mmol/L (137-145) L 09/08/16 09:06 Potassium 4.2 mmol/L (3.6-5.0) 09/08/16 09:06 Chloride 97.4 mmol/L (98-107) L 09/08/16 09:06 Carbon Dioxide 25 mmol/L (22-30) 09/08/16 09:06 Anion Gap 16 mmol/L 09/08/16 09:06 BUN 17 mg/dL (9-20) 09/08/16 09:06 Creatinine 1.1 mg/dL (0.8-1.5) 09/08/16 09:06 Estimated GFR > 60 ml/min 09/08/16 09:06 BUN/Creatinine Ratio 15.45 % 09/08/16 09:06 Glucose 106 mg/dL (75-100) H 09/08/16 09:06 POC Glucose 141 (70-105) H 09/06/16 21:54 Lactic Acid 1.0 mmol/L (0.7-2.0) 09/04/16 21:09 Calcium 8.4 mg/dL (8.4-10.2) 09/08/16 09:06 Phosphorus 5.9 mg/dL (2.5-4.5) H D 09/05/16 04:36 Magnesium 2.5 mg/dL (1.7-2.3) H 09/05/16 04:36 Total Bilirubin 0.4 mg/dL (0.1-1.2) 09/05/16 04:36 Direct Bilirubin < 0.2 mg/dL (0-0.2) 09/04/16 16:20 Indirect Bilirubin 0.5 mg/dL 09/04/16 16:20 AST 15 units/L (5-40) 09/05/16 04:36 ALT 9 units/L (7-56) 09/05/16 04:36 Alkaline Phosphatase 75 units/L (35-129) 09/05/16 04:36 Total Creatine Kinase 663 units/L (55-170) H 09/06/16 21:58 Total Protein 6.6 g/dL (6.3-8.2) 09/05/16 04:36 Albumin 3.1 g/dL (3.9-5) L 09/05/16 04:36 Albumin/Globulin Ratio 0.9 % 09/05/16 04:36 TSH 2.280 mlU/mL (0.270-4.200) 09/04/16 16:20 Urine Color Yellow (Yellow) 09/04/16 16:31 Urine Turbidity Clear (Clear) 09/04/16 16:31 Urine pH 6.0 (5.0-7.0) 09/04/16 16:31 Ur Specific [place] 1.018 (1.003-1.030) 09/04/16 16:31 Urine Protein >500 mg/dL (Negative) 09/04/16 16:31 Urine Glucose (UA) Neg mg/dL (Negative) 09/04/16 16:31 Urine Ketones Neg mg/dL (Negative) 09/04/16 16:31 Urine Blood Sm (Negative) 09/04/16 16:31 Urine Nitrite Neg (Negative) 09/04/16 16:31 Urine Bilirubin Neg (Negative) 09/04/16 16:31 Urine Urobilinogen 4.0 mg/dL (<2.0) 09/04/16 16:31 Ur Leukocyte Esterase Neg (Negative) 09/04/16 16:31 Urine WBC (Auto) 4.0 /HPF (0.0-6.0) 09/04/16 16:31 Urine RBC (Auto) 6.0 /HPF (0.0-6.0) 09/04/16 16:31 U Epithel Cells (Auto) 1.0 /HPF (0-13.0) 09/04/16 16:31 Amorphous Crystals Few 09/04/16 16:31 Granular Casts 6 /LPF 09/04/16 16:31 Urine Mucus Few /HPF 09/04/16 16:31 Salicylates < 0.3 mg/dL (2.8-20.0) L 09/04/16 16:20 Urine Opiates Screen Presumptive negative 09/04/16 16:31 Urine Methadone Screen Presumptive negative 09/04/16 16:31 Acetaminophen < 15.0 ug/mL (10.0-30.0) 09/04/16 16:20 Ur Barbiturates Screen Presumptive negative 09/04/16 16:31 Ur Phencyclidine Scrn Presumptive negative 09/04/16 16:31 Ur Amphetamines Screen Presumptive negative 09/04/16 16:31 U Benzodiazepines Scrn Presumptive negative 09/04/16 16:31 Urine Cocaine Screen Presumptive negative 09/04/16 16:31 U Marijuana (THC) Screen Presumptive positive 09/04/16 16:31 Drugs of Abuse Note Disclamer 09/04/16 16:31 Plasma/Serum Alcohol < 0.01 gm% (0-0.07) 09/04/16 16:20
[2016-09-08] MEDS: DIPRIVAN 10 MG/ML 100 ML IV SCH (15:15)
--- NOTE | 2016-09-08 17:47 | Magnetic Resonance Report ---
FINAL REPORT EXAM: MR BRAIN WO CON HISTORY: Altered Mental Status TECHNIQUE: Multiplanar, multisequence MRI of the brain was performed without intravenous contrast. PRIORS: CT of the head 09/04/2016. FINDINGS: Mild motion artifact is present on several sequences. There is subtle increased T2 FLAIR signal within posterior parietal and occipital lobes in the region of the previously seen areas of low attenuation on the head CT performed on 09/04/2016. No intracranial hemorrhage, mass, mass effect, midline shift or evidence of ischemic infarct. No restricted diffusion. The intracranial flow voids are patent. The ventricles are normal in size, shape and position. The basilar cisterns are patent. Paranasal sinus mucosal thickening is likely congestive or inflammatory. Bilateral mastoid effusions are seen. The orbits are intact. The extracranial soft tissues are normal. IMPRESSION: 1. Very subtle increased T2 FLAIR signal within the posterior parietal and occipital lobes in a similar distribution to the attenuation abnormality on the prior CT from 09/04/2016 again can be seen in posterior reversible encephalopathy syndrome. Findings can also be seen in status epilepticus or hypoglycemia. 2. Mucosal thickening of the paranasal sinuses is likely congestive or inflammatory. 3. Bilateral mastoid effusions.
[2016-09-08] MEDS: APRESOLINE IV PRN (17:52)
[2016-09-09 05:04] LABS: Basophils % (Auto) 0.2 % (0.0-1.8); Hematocrit 22.1 % (35.5-45.6); Hemoglobin 7.3 gm/dl (11.8-15.2); Mean Corpuscular HGB Conc 33 % (32-34); Mean Corpuscular Hemoglobin 28 pg (28-32); Mean Corpuscular Volume 83 fl (84-94); Platelet Count 364 K/mm3 (140-440); Red Blood Count 2.65 M/mm3 (3.65-5.03); Red Cell Distribution Width 14.8 % (13.2-15.2); White Blood Count 8.3 K/mm3 (4.5-11.0)
[2016-09-09 05:29] LABS: Blood Urea Nitrogen 19 mg/dL (9-20); Calcium 8.5 mg/dL (8.4-10.2); Carbon Dioxide 27 mmol/L (22-30); Chloride 97.2 mmol/L (98-107); Glucose 113 mg/dL (75-100); Sodium 135 mmol/L (137-145)
[2016-09-09 05:44] LABS: Anion Gap 15 mmol/L
[2016-09-09] MEDS: CATAPRES PO SCH ×3 (06:20→21:56)
[2016-09-09] MEDS ORDERED: TYLENOL FEEDTUBE ONE (06:25)
[2016-09-09] MEDS: LOVENOX SUB-Q SCH (10:33)
[2016-09-09] MEDS: PEPCID PO SCH ×2 (10:33→21:56)
[2016-09-09] MEDS: KEPPRA PO SCH ×2 (10:33→21:57)
[2016-09-09] MEDS: LOPRESSOR PO SCH ×2 (10:34→21:56)
[2016-09-09] MEDS: APRESOLINE IV PRN ×2 (11:14→18:50)
[2016-09-09] MEDS: DILAUDID IV PRN ×2 (11:14→15:43)
--- NOTE | 2016-09-09 12:20 | Progress Note ---
Assessment and Plan - Patient Problems (1) Hypertensive emergency Current Visit: Yes Status: Acute Plan to address problem: - improved - continue prn hydralazine - continue oral antihypertensives - analgesia (2) Status epilepticus Current Visit: Yes Status: Acute Plan to address problem: - hold other sedatives stressed again with transition to propofol - are-ordered EEG stat as could not find prior order in chart - seen by neurology - MRI reviewed and without major pathology - clinically much improved (3) Acute respiratory failure Current Visit: Yes Status: Acute Plan to address problem: - AMS much improved and will give a trial of extubation if passes SBT in am - continue aspiration precautions / VAP bundles - prn bronchodilators - continue PSV trials as tolerated today (4) Discharge planning issues Current Visit: Yes Status: Acute Plan to address problem: - hopefully no permanent neurologic damage and can be extubated in am - care plan discussed with mom in room ...for now remains critically ill on life sustaining interventions including MVS and at high risk for further deterioration including .....31' CCT Subjective Date of service: 09/09/16 Principal diagnosis: Acute Respiratory Failure; Seizures Interval history: Seen and examined at bedside; 24 hour events reviewed; nursing and respiratory care staff consulted; no adverse overnight events reported to me; remains on MVS ; tolerating PSV well; mental status much improved; denies acute chest pains; mother in room Objective Vital Signs - 12hr 09/09/16 09/09/16 09/09/16 00:30 01:00 01:30 Temperature Pulse Rate 78 78 78 Respiratory 20 24 24 Rate Blood Pressure 124/67 126/77 125/71 O2 Sat by Pulse 99 100 100 Oximetry 09/09/16 09/09/16 09/09/16 02:00 02:15 02:30 Temperature Pulse Rate 78 79 81 Respiratory 24 21 22 Rate Blood Pressure 129/76 143/83 O2 Sat by Pulse 100 99 99 Oximetry 09/09/16 09/09/16 09/09/16 03:00 03:07 03:15 Temperature Pulse Rate 79 83 81 Respiratory 23 23 23 Rate Blood Pressure 135/71 135/71 135/71 O2 Sat by Pulse 99 99 99 Oximetry 09/09/16 09/09/16 09/09/16 03:30 04:00 04:04 Temperature 100.8 F H Pulse Rate 82 81 85 Respiratory 22 21 18 Rate Blood Pressure 138/84 134/88 134/88 O2 Sat by Pulse 99 99 99 Oximetry 09/09/16 09/09/16 09/09/16 04:15 04:30 04:33 Temperature Pulse Rate 84 85 84 Respiratory 25 H Rate Blood Pressure 151/80 134/88 O2 Sat by Pulse 99 99 99 Oximetry 09/09/16 09/09/16 09/09/16 04:34 05:00 05:30 Temperature Pulse Rate 81 81 86 Respiratory 25 H 24 24 Rate Blood Pressure 151/80 139/78 149/84 O2 Sat by Pulse 99 99 98 Oximetry 09/09/16 09/09/16 09/09/16 06:00 06:20 06:30 Temperature Pulse Rate 85 90 85 Respiratory 27 H 26 H 24 Rate Blood Pressure 147/93 134/88 147/93 O2 Sat by Pulse 99 99 98 Oximetry 09/09/16 09/09/16 09/09/16 06:34 06:36 07:00 Temperature Pulse Rate 85 87 Respiratory 24 22 24 Rate Blood Pressure 167/113 168/114 O2 Sat by Pulse 99 99 Oximetry 09/09/16 09/09/16 09/09/16 07:22 07:30 07:56 Temperature 100.2 F H Pulse Rate 82 Respiratory 16 22 Rate Blood Pressure 145/93 O2 Sat by Pulse 99 Oximetry 09/09/16 09/09/16 09/09/16 08:00 08:30 08:38 Temperature Pulse Rate 80 78 79 Respiratory 22 20 24 Rate Blood Pressure 145/95 151/101 151/101 O2 Sat by Pulse 99 100 99 Oximetry 09/09/16 09/09/16 09/09/16 08:52 09:00 09:08 Temperature Pulse Rate 78 77 77 Respiratory 22 21 19 Rate Blood Pressure 151/96 147/90 147/90 O2 Sat by Pulse 98 98 99 Oximetry 09/09/16 09/09/16 09/09/16 09:30 10:00 10:30 Temperature Pulse Rate 74 76 72 Respiratory 17 22 16 Rate Blood Pressure 147/90 147/90 167/103 O2 Sat by Pulse 100 99 99 Oximetry 09/09/16 09/09/16 09/09/16 10:34 11:14 11:49 Temperature 98.9 F Pulse Rate 71 77 Respiratory Rate Blood Pressure 176/114 168/105 O2 Sat by Pulse Oximetry Constitutional: no acute distress, other (somnolent) Eyes: non-icteric ENT: oropharynx moist Neck: supple, no lymphadenopathy Effort: normal Ascultation: Bilateral: clear Cardiovascular: regular rate and rhythm Gastrointestinal: normoactive bowel sounds, soft, non-tender, non-distended Integumentary: normal Extremities: no cyanosis, no edema, pulses normal, no ischemia or petechiae Neurologic: non-focal exam (grossly), pupils equal and round, other (weak) Psychiatric: other (unable to assess) CBC and BMP: 09/09/16 04:26 09/09/16 04:26 ABG, PT/INR, D-dimer: ABG POC ABG pH 7.471 (7.35-7.45) H 09/08/16 11:40 POC ABG pCO2 36.2 (35-45) 09/08/16 11:40 POC ABG pO2 101 (80-105) 09/08/16 11:40 POC ABG HCO3 26.4 09/08/16 11:40 POC ABG Total CO2 27 09/08/16 11:40 POC ABG O2 Sat 98 09/08/16 11:40 Abnormal lab findings: Abnormal Labs 09/05/16 09/05/16 09/05/16 04:36 04:36 04:36 RBC Hgb 10.2 L Hct 30.2 L D MCV 81 L D MCH Lymph % (Auto) 12.0 L [place] % (Auto) 11.8 H Lymph # [place] # 1.3 H Seg Neutrophils % 74.3 H Seg Neutrophils # 7.9 H POC ABG pH POC ABG pCO2 POC ABG pO2 Sodium Potassium 3.1 L Chloride 97.5 L Creatinine Glucose 156 H POC Glucose Phosphorus Magnesium 2.5 H Total Creatine Kinase Albumin 3.1 L 09/05/16 09/05/16 09/05/16 04:36 05:45 21:28 RBC Hgb Hct MCV MCH Lymph % (Auto) [place] % (Auto) Lymph # [place] # Seg Neutrophils % Seg Neutrophils # POC ABG pH POC ABG pCO2 POC ABG pO2 178 H Sodium Potassium Chloride Creatinine Glucose POC Glucose 125 H Phosphorus 5.9 H D Magnesium Total Creatine Kinase Albumin 09/06/16 09/06/16 09/06/16 04:51 04:51 05:36 RBC 3.02 L Hgb 8.2 L Hct 25.0 L MCV 83 L MCH 27 L Lymph % (Auto) [place] % (Auto) 12.0 H Lymph # 1.1 L [place] # 1.0 H Seg Neutrophils % Seg Neutrophils # POC ABG pH 7.341 L POC ABG pCO2 48.7 H POC ABG pO2 Sodium 135 L Potassium Chloride Creatinine 1.6 H Glucose 112 H POC Glucose Phosphorus Magnesium Total Creatine Kinase Albumin 09/06/16 09/06/16 09/06/16 13:45 21:54 21:58 RBC Hgb Hct MCV MCH Lymph % (Auto) [place] % (Auto) Lymph # [place] # Seg Neutrophils % Seg Neutrophils # POC ABG pH POC ABG pCO2 POC ABG pO2 78 L Sodium Potassium Chloride Creatinine Glucose POC Glucose 141 H Phosphorus Magnesium Total Creatine Kinase 663 H Albumin 09/07/16 09/07/16 09/07/16 04:48 04:48 05:49 RBC 2.90 L Hgb 8.1 L Hct 23.9 L MCV 83 L MCH Lymph % (Auto) 8.9 L [place] % (Auto) 10.4 H Lymph # 0.8 L [place] # 0.9 H Seg Neutrophils % 79.7 H Seg Neutrophils # POC ABG pH 7.468 H POC ABG pCO2 33.5 L POC ABG pO2 107 H Sodium Potassium Chloride Creatinine Glucose 105 H POC Glucose Phosphorus Magnesium Total Creatine Kinase Albumin 09/08/16 09/08/16 09/08/16 09:06 09:06 11:40 RBC 2.79 L Hgb 7.6 L Hct 22.9 L MCV 82 L MCH 27 L Lymph % (Auto) 8.6 L [place] % (Auto) 10.3 H Lymph # 0.7 L [place] # 0.9 H Seg Neutrophils % 79.3 H Seg Neutrophils # POC ABG pH 7.471 H POC ABG pCO2 POC ABG pO2 Sodium 134 L Potassium Chloride 97.4 L Creatinine Glucose 106 H POC Glucose Phosphorus Magnesium Total Creatine Kinase Albumin 09/08/16 09/09/16 09/09/16 23:31 04:26 04:26 RBC 2.65 L Hgb 7.3 L Hct 22.1 L MCV 83 L MCH Lymph % (Auto) 10.1 L [place] % (Auto) 10.9 H Lymph # 0.8 L [place] # 0.9 H Seg Neutrophils % 75.8 H Seg Neutrophils # POC ABG pH POC ABG pCO2 POC ABG pO2 Sodium 135 L Potassium Chloride 97.2 L Creatinine Glucose 113 H POC Glucose 131 H Phosphorus Magnesium Total Creatine Kinase Albumin Chest x-ray: image reviewed
--- NOTE | 2016-09-09 14:41 | Progress Note ---
Assessment and Plan Assessment and plan: Posterior Reversible Encephalopathy Syndrome - Supportive care - Control BP Acute respiratory failure 2/2 seizure disorder - intubated and mechanically ventilated - Patient is on Keppra - Neurology consult placed - Chest x-ray normal Hypertensive emergency - Patient is on IV medications to control blood pressure - IV hydralazine, clonidine - We will monitor Hypokalemia - Repleted Acute kidney injury - Resolved Anemia - No active bleeding Disposition - Continue ICU care Disposition Plan: Continue ICU care History Interval history: Patient was intubated and mechanically ventilated. Patient is off sedation but still not alert and oriented. His mother was in the room when I evaluated him. She said sometimes he is responding. Hospitalist Physical - Physical exam Narrative exam: On mechanical ventilation, off sedation. Vital signs as documented. Head exam is unremarkable. Eyes: swollen , there is whitish tissue on the lower eyelid bilaterally, doesn' t look like it is infected. Neck is without jugular venous distension, thyromegaly, or carotid bruits. Lungs are clear to auscultation. Cardiac exam reveals regular rate and Rhythm. First and second heart sounds normal. No murmurs, rubs or gallops. Abdominal exam reveals normal bowel sounds, no masses, no organomegaly and no aortic enlargement. Extremities are nonedematous and both femoral and pedal pulses are normal. INTERACTIVE MEDIA DIRECTOR: lethargic. - Constitutional Vitals: Temp Pulse Resp BP Pulse Ox 98.9 F 80 13 147/85 98 09/09/16 11:49 09/09/16 14:00 09/09/16 14:00 09/09/16 14:00 09/09/16 14:00 Results - Labs CBC & Chem 7: 09/09/16 04:26 09/09/16 04:26 Labs: Laboratory Last Values WBC 8.3 K/mm3 (4.5-11.0) 09/09/16 04:26 RBC 2.65 M/mm3 (3.65-5.03) L 09/09/16 04:26 Hgb 7.3 gm/dl (11.8-15.2) L 09/09/16 04:26 Hct 22.1 % (35.5-45.6) L 09/09/16 04:26 MCV 83 fl (84-94) L 09/09/16 04:26 MCH 28 pg (28-32) 09/09/16 04:26 MCHC 33 % (32-34) 09/09/16 04:26 RDW 14.8 % (13.2-15.2) 09/09/16 04:26 Plt Count 364 K/mm3 (140-440) 09/09/16 04:26 Lymph % (Auto) 10.1 % (13.4-35.0) L 09/09/16 04:26 [place] % (Auto) 10.9 % (0.0-7.3) H 09/09/16 04:26 Eos % (Auto) 3.0 % (0.0-4.3) 09/09/16 04:26 Baso % (Auto) 0.2 % (0.0-1.8) 09/09/16 04:26 Lymph # 0.8 K/mm3 (1.2-5.4) L 09/09/16 04:26 [place] # 0.9 K/mm3 (0.0-0.8) H 09/09/16 04:26 Eos # 0.2 K/mm3 (0.0-0.4) 09/09/16 04:26 Baso # 0.0 K/mm3 (0.0-0.1) 09/09/16 04:26 Seg Neutrophils % 75.8 % (40.0-70.0) H 09/09/16 04:26 Seg Neutrophils # 6.3 K/mm3 (1.8-7.7) 09/09/16 04:26 POC ABG pH 7.471 (7.35-7.45) H 09/08/16 11:40 POC ABG pCO2 36.2 (35-45) 09/08/16 11:40 POC ABG pO2 101 (80-105) 09/08/16 11:40 POC ABG HCO3 26.4 09/08/16 11:40 POC ABG Total CO2 27 09/08/16 11:40 POC ABG O2 Sat 98 09/08/16 11:40 POC ABG Base Excess 3 09/08/16 11:40 FiO2 25 % 09/08/16 11:40 Sodium 135 mmol/L (137-145) L 09/09/16 04:26 Potassium 4.0 mmol/L (3.6-5.0) 09/09/16 04:26 Chloride 97.2 mmol/L (98-107) L 09/09/16 04:26 Carbon Dioxide 27 mmol/L (22-30) 09/09/16 04:26 Anion Gap 15 mmol/L 09/09/16 04:26 BUN 19 mg/dL (9-20) 09/09/16 04:26 Creatinine 1.0 mg/dL (0.8-1.5) 09/09/16 04:26 Estimated GFR > 60 ml/min 09/09/16 04:26 BUN/Creatinine Ratio 19.00 % 09/09/16 04:26 Glucose 113 mg/dL (75-100) H 09/09/16 04:26 POC Glucose 131 (70-105) H 09/08/16 23:31 Lactic Acid 1.0 mmol/L (0.7-2.0) 09/04/16 21:09 Calcium 8.5 mg/dL (8.4-10.2) 09/09/16 04:26 Phosphorus 5.9 mg/dL (2.5-4.5) H D 09/05/16 04:36 Magnesium 2.5 mg/dL (1.7-2.3) H 09/05/16 04:36 Total Bilirubin 0.4 mg/dL (0.1-1.2) 09/05/16 04:36 Direct Bilirubin < 0.2 mg/dL (0-0.2) 09/04/16 16:20 Indirect Bilirubin 0.5 mg/dL 09/04/16 16:20 AST 15 units/L (5-40) 09/05/16 04:36 ALT 9 units/L (7-56) 09/05/16 04:36 Alkaline Phosphatase 75 units/L (35-129) 09/05/16 04:36 Total Creatine Kinase 663 units/L (55-170) H 09/06/16 21:58 Total Protein 6.6 g/dL (6.3-8.2) 09/05/16 04:36 Albumin 3.1 g/dL (3.9-5) L 09/05/16 04:36 Albumin/Globulin Ratio 0.9 % 09/05/16 04:36 TSH 2.280 mlU/mL (0.270-4.200) 09/04/16 16:20 Urine Color Yellow (Yellow) 09/04/16 16:31 Urine Turbidity Clear (Clear) 09/04/16 16:31 Urine pH 6.0 (5.0-7.0) 09/04/16 16:31 Ur Specific [place] 1.018 (1.003-1.030) 09/04/16 16:31 Urine Protein >500 mg/dL (Negative) 09/04/16 16:31 Urine Glucose (UA) Neg mg/dL (Negative) 09/04/16 16:31 Urine Ketones Neg mg/dL (Negative) 09/04/16 16:31 Urine Blood Sm (Negative) 09/04/16 16:31 Urine Nitrite Neg (Negative) 09/04/16 16:31 Urine Bilirubin Neg (Negative) 09/04/16 16:31 Urine Urobilinogen 4.0 mg/dL (<2.0) 09/04/16 16:31 Ur Leukocyte Esterase Neg (Negative) 09/04/16 16:31 Urine WBC (Auto) 4.0 /HPF (0.0-6.0) 09/04/16 16:31 Urine RBC (Auto) 6.0 /HPF (0.0-6.0) 09/04/16 16:31 U Epithel Cells (Auto) 1.0 /HPF (0-13.0) 09/04/16 16:31 Amorphous Crystals Few 09/04/16 16:31 Granular Casts 6 /LPF 09/04/16 16:31 Urine Mucus Few /HPF 09/04/16 16:31 Salicylates < 0.3 mg/dL (2.8-20.0) L 09/04/16 16:20 Urine Opiates Screen Presumptive negative 09/04/16 16:31 Urine Methadone Screen Presumptive negative 09/04/16 16:31 Acetaminophen < 15.0 ug/mL (10.0-30.0) 09/04/16 16:20 Ur Barbiturates Screen Presumptive negative 09/04/16 16:31 Ur Phencyclidine Scrn Presumptive negative 09/04/16 16:31 Ur Amphetamines Screen Presumptive negative 09/04/16 16:31 U Benzodiazepines Scrn Presumptive negative 09/04/16 16:31 Urine Cocaine Screen Presumptive negative 09/04/16 16:31 U Marijuana (THC) Screen Presumptive positive 09/04/16 16:31 Drugs of Abuse Note Disclamer 09/04/16 16:31 Plasma/Serum Alcohol < 0.01 gm% (0-0.07) 09/04/16 16:20 - Imaging and Cardiology MRI - head: report reviewed (posterior encephalopathy syndrome)
--- NOTE | 2016-09-09 14:57 | Consultation ---
History of Present Illness - Reason for Consult Consult date: 09/09/16 seizure - History of Present Illness patient is seen and assessed the MRI shows only the minimal posterior changes seen in HTN related seizures will check EEG spoke to the mother neuro exam is OK probably OK to extubate as seizure control is good Thanks will follow up Medications and Allergies Allergies Allergy/AdvReac Type Severity Reaction Status Date / Time No Known Allergies Allergy Verified 08/10/16 16:44 Home Medications Medication Instructions Recorded Confirmed Last Taken Type Metoprolol [Lopressor] 100 mg PO BID 09/04/16 09/04/16 Unknown History NIFEdipine [Nifedipine ER] 60 mg PO BID 09/04/16 09/04/16 Unknown History Active Meds: Active Medications Al Hydrox/Mg Hydrox/Simethicone (Alum-Mag Hydrox-Simeth 558-400-62vn/5ml) 30 ml PO Q4H PRN PRN Reason: Indigestion Lipase/Protease/Amylase (Pancreaze Dr 10,500 Unit) 1 each FEEDTUBE PRN PRN PRN Reason: For Clogged Feeding Tube Bisacodyl (Dulcolax) 10 mg IN QDAY PRN PRN Reason: constipation unrelieved by MOM Clonidine HCl (Catapres) 0.2 mg PO Q8HR PAULA Last Admin: 09/09/16 06:20 Dose: 0.2 mg Enoxaparin Sodium (Lovenox) 40 mg SUB-Q QDAY PAULA Last Admin: 09/09/16 10:33 Dose: 40 mg Famotidine (Pepcid) 20 mg PO BID PAULA Last Admin: 09/09/16 10:33 Dose: 20 mg Hydralazine HCl (Apresoline) 20 mg IV Q4H PRN PRN Reason: SBP > 170 MMHG Last Admin: 09/09/16 11:14 Dose: 20 mg Hydromorphone HCl (Dilaudid) 0.5 mg IV Q3HR PRN PRN Reason: Pain , Severe (7-10) Last Admin: 09/09/16 11:14 Dose: 0.5 mg Hydrophilic Ointment (Vaseline Lip Therapy) 1 applic TP Q2HR PRN PRN Reason: Dry Lips Lorazepam 100 mg/ Sodium Chloride/ Miscellaneous Information 100 mls @ 1 mls/ hr IV TITR PAULA; 1 MG/HR PRN Reason: Protocol Last Titration: 09/07/16 11:35 Dose: 0 mg/hr Nicardipine/Sodium Chloride (Cardene Drip 40 Mg/200 Ml) 200 mls @ 25 mls/hr IV TITR PAULA; 5 MG/HR PRN Reason: Protocol Last Titration: 09/05/16 19:41 Dose: 0 mg/hr Fentanyl Citrate (Fentanyl Drip Premix) 100 mls @ 2.722 mls/hr IV TITR PAULA; 1 MCG/KG/HR PRN Reason: Protocol Last Titration: 09/07/16 11:33 Dose: 0 mcg/kg/hr Propofol (Diprivan 10 Mg/Ml) 100 mls @ 1.633 mls/hr IV TITR PAULA; 5 MCG/KG/MIN PRN Reason: Protocol Last Admin: 09/08/16 15:15 Dose: 3.266 mls/hr Levetiracetam (Keppra) 1,000 mg PO BID [facility] Last Admin: 09/09/16 10:33 Dose: 1,000 mg Magnesium Hydroxide (Milk Of Magnesia) 30 ml PO Q4H PRN PRN Reason: Constipation Metoprolol Tartrate (Lopressor) 50 mg PO BID [facility] Last Admin: 09/09/16 10:34 Dose: 50 mg Multi-Ingred Cream/Lotion/Oil/Oint (Artificial Tears Ophth Oint) 1 applic OU Q4HR PRN PRN Reason: Dry Eye(s) Last Admin: 09/07/16 05:45 Dose: 1 applic Simple Syrup (Simple Syrup) 15 ml FEEDTUBE PRN PRN PRN Reason: Hypoglycemia Simple Syrup (Simple Syrup) 30 ml FEEDTUBE PRN PRN PRN Reason: Hypoglycemia Sodium Bicarbonate (Sodium Bicarbonate) 325 mg FEEDTUBE PRN PRN PRN Reason: For Clogged Feeding Tube Exam - Constitutional Vitals: Temp Pulse Resp BP Pulse Ox 98.9 F 80 13 147/85 98 09/09/16 11:49 09/09/16 14:00 09/09/16 14:00 09/09/16 14:00 09/09/16 14:00 Results - Labs CBC & Chem 7: 09/09/16 04:26 09/09/16 04:26 Labs: Abnormal lab results 09/08/16 09/09/16 09/09/16 Range/Units 23:31 04:26 04:26 RBC 2.65 L (3.65-5.03) M/mm3 Hgb 7.3 L (11.8-15.2) gm/dl Hct 22.1 L (35.5-45.6) % MCV 83 L (84-94) fl Lymph % (Auto) 10.1 L (13.4-35.0) % [place] % (Auto) 10.9 H (0.0-7.3) % Lymph # 0.8 L (1.2-5.4) K/mm3 [place] # 0.9 H (0.0-0.8) K/mm3 Seg Neutrophils % 75.8 H (40.0-70.0) % Sodium 135 L (137-145) mmol/L Chloride 97.2 L (98-107) mmol/L Glucose 113 H (75-100) mg/dL POC Glucose 131 H (70-105)
[2016-09-09 17:11] LABS: ISTAT Base Excess 4; ISTAT HCO3 28.5; ISTAT PCO2 42.6 (35-45); ISTAT PH 7.433 (7.35-7.45); ISTAT PO2 75 (80-105); ISTAT SO2 95; ISTAT TCO2 30
[2016-09-09] MEDS: TOBRADEX OU SCH ×2 (20:33→21:57)
[2016-09-10] MEDS: TOBRADEX OU SCH ×6 (01:35→22:12)
[2016-09-10] MEDS: ARTIFICIAL TEARS OPHTH OINT OU PRN (03:46)
[2016-09-10] MEDS: DIPRIVAN 10 MG/ML 100 ML IV SCH (03:47)
[2016-09-10 05:05] LABS: Blood Urea Nitrogen 18 mg/dL (9-20); Calcium 8.8 mg/dL (8.4-10.2); Carbon Dioxide 27 mmol/L (22-30); Chloride 100.2 mmol/L (98-107); Glucose 113 mg/dL (75-100); Potassium 3.8 mmol/L (3.6-5.0); Sodium 141 mmol/L (137-145)
[2016-09-10 05:10] LABS: Anion Gap 18 mmol/L
[2016-09-10 05:16] LABS: Basophils % (Auto) 0.4 % (0.0-1.8); Eosinophils % (Auto) 4.2 % (0.0-4.3); Hematocrit 26.7 % (35.5-45.6); Hemoglobin 8.9 gm/dl (11.8-15.2); Mean Corpuscular HGB Conc 34 % (32-34); Mean Corpuscular Hemoglobin 28 pg (28-32); Mean Corpuscular Volume 83 fl (84-94); Platelet Count 470 K/mm3 (140-440); Red Blood Count 3.23 M/mm3 (3.65-5.03); Red Cell Distribution Width 14.8 % (13.2-15.2); White Blood Count 8.3 K/mm3 (4.5-11.0)
[2016-09-10] MEDS: CATAPRES PO SCH ×3 (05:49→22:09)
[2016-09-10 06:06] LABS: ISTAT Base Excess 5; ISTAT HCO3 28.6; ISTAT PCO2 39.3 (35-45); ISTAT PO2 84 (80-105); ISTAT SO2 97; ISTAT TCO2 30
--- NOTE | 2016-09-10 10:04 | Consultation ---
HISTORY OF PRESENT ILLNESS: This patient is seen for neurological consultation. Spoke with his mother. There is no prior history of stroke, seizure, or any neurological problem. He may have had high blood pressures, difficult to ascertain whether he was under treatment or merely under observation. On speaking with mother, he was visiting friends, then went into generalized seizures. Blood pressure was elevated at that point. No history of any drug use, AIDS, diabetes, or any other predisposing factors to seizure, strokes since admission. He has remained intubated, was initially on sedation in order to get the MRI. At this point, post-MRI which I reviewed, I will discuss that later. PHYSICAL EXAMINATION: Reveals him to be alert, blood pressure ____, intubated. He follows all commands well, moves all extremities. Sensation is intact. Command following is intact. He is fully alert, moves appropriately according to commands. Motor and sensory examination is otherwise unremarkable. IMPRESSION: I suspect this seizure occurred related to his high blood pressure. The changes noted on the MR are typical of the posterior encephalopathic pattern seen with hypertension and/or seizure disorder. PLAN: To continue him on seizure medication, get an EEG, would recommend probably within 3 weeks repeating the MRI to make sure these changes go away. Current choice of seizure medicine seems reasonable. We will continue the same. We will get an EEG as well. JOB# [id number] JOSE/ADEN
[2016-09-10] MEDS: APRESOLINE IV PRN ×2 (10:05→13:47)
[2016-09-10] MEDS: LOVENOX SUB-Q SCH (10:06)
--- NOTE | 2016-09-10 11:53 | Progress Note ---
Assessment and Plan - Patient Problems (1) Hypertensive emergency Current Visit: Yes Status: Acute Plan to address problem: - improved - continue prn hydralazine IB - schedule oral hydralazine - prn analgesia (2) Status epilepticus Current Visit: Yes Status: Acute Plan to address problem: - MRI reviewed and without major pathology - clinically much improved - no clinical seizures - neurology notes reviewed - will discontinue Keppra with prn ativan in short term (3) Acute respiratory failure Current Visit: Yes Status: Acute Plan to address problem: - AMS much improved and will give a trial of extubation if passes SBT in am - continue aspiration precautions - prn bronchodilators - self extubated - wean off oxygen (4) Discharge planning issues Current Visit: Yes Status: Acute Plan to address problem: - hopefully no permanent neurologic damage and can be extubated in am - care plan discussed with mom in room - transfer to telemetry in am if no deterioration (lethargic now and on cardene drip) Subjective Date of service: 09/10/16 Principal diagnosis: Acute Respiratory Failure; Seizures Interval history: Seen and examined at bedside; 24 hour events reviewed; nursing and respiratory care staff consulted; no adverse overnight events reported to me; even more alert; apologized for earlier behaviour to nursing staff; still weak; self extubated earlier but doing well; denies acute chest pains or increased SOB Objective Vital Signs - 12hr 09/10/16 09/10/16 09/10/16 00:00 00:30 01:00 Temperature 98.6 F Pulse Rate 76 82 Pulse Rate [ 85 From Monitor] Respiratory 20 20 21 Rate Blood Pressure 133/74 131/79 143/83 O2 Sat by Pulse 99 99 100 Oximetry 09/10/16 09/10/16 09/10/16 01:30 02:00 02:30 Temperature Pulse Rate 81 86 86 Pulse Rate [ From Monitor] Respiratory 21 21 23 Rate Blood Pressure 146/89 146/87 153/99 O2 Sat by Pulse 99 99 100 Oximetry 09/10/16 09/10/16 09/10/16 03:00 03:30 04:00 Temperature 98.0 F Pulse Rate 99 H 86 85 Pulse Rate [ 82 From Monitor] Respiratory 17 22 21 Rate Blood Pressure 153/99 133/88 159/99 O2 Sat by Pulse 99 98 99 Oximetry 09/10/16 09/10/16 09/10/16 04:10 04:30 05:00 Temperature Pulse Rate 88 79 79 Pulse Rate [ From Monitor] Respiratory 21 18 17 Rate Blood Pressure 159/99 154/97 149/94 O2 Sat by Pulse 99 99 99 Oximetry 09/10/16 09/10/16 09/10/16 05:30 05:38 05:40 Temperature Pulse Rate 83 78 79 Pulse Rate [ From Monitor] Respiratory 21 18 Rate Blood Pressure 179/120 179/120 O2 Sat by Pulse 100 100 99 Oximetry 09/10/16 09/10/16 09/10/16 05:49 06:00 06:30 Temperature Pulse Rate 79 80 75 Pulse Rate [ From Monitor] Respiratory 20 18 Rate Blood Pressure 183/124 156/104 O2 Sat by Pulse 100 100 Oximetry 09/10/16 09/10/16 09/10/16 06:32 07:00 07:30 Temperature Pulse Rate 75 72 71 Pulse Rate [ From Monitor] Respiratory 18 17 16 Rate Blood Pressure 156/104 148/95 149/94 O2 Sat by Pulse 100 100 100 Oximetry 09/10/16 09/10/16 09/10/16 08:00 08:10 08:30 Temperature 98.1 F Pulse Rate 77 83 102 H Pulse Rate [ From Monitor] Respiratory 17 18 23 Rate Blood Pressure 165/107 165/107 165/107 O2 Sat by Pulse 100 100 95 Oximetry 09/10/16 09/10/16 09/10/16 08:54 09:00 09:30 Temperature Pulse Rate 91 H 89 80 Pulse Rate [ From Monitor] Respiratory 17 17 Rate Blood Pressure 188/121 182/113 180/111 O2 Sat by Pulse 98 100 100 Oximetry 09/10/16 09/10/16 09/10/16 10:00 10:05 11:00 Temperature Pulse Rate 85 84 Pulse Rate [ From Monitor] Respiratory 15 Rate Blood Pressure 173/110 173/110 O2 Sat by Pulse 100 98 Oximetry Constitutional: no acute distress, other (somnolent) Eyes: non-icteric ENT: oropharynx moist Neck: supple, no lymphadenopathy Effort: normal Ascultation: Bilateral: clear Cardiovascular: regular rate and rhythm Gastrointestinal: normoactive bowel sounds, soft, non-tender, non-distended Integumentary: normal Extremities: no cyanosis, no edema, pulses normal, no ischemia or petechiae Neurologic: normal mental status, non-focal exam, pupils equal and round, other (weak) Psychiatric: mood appropriate, affect normal CBC and BMP: 09/10/16 03:41 09/10/16 03:41 ABG, PT/INR, D-dimer: ABG POC ABG pH 7.470 (7.35-7.45) H 09/10/16 05:58 POC ABG pCO2 39.3 (35-45) 09/10/16 05:58 POC ABG pO2 84 (80-105) 09/10/16 05:58 POC ABG HCO3 28.6 09/10/16 05:58 POC ABG Total CO2 30 09/10/16 05:58 POC ABG O2 Sat 97 09/10/16 05:58 Abnormal lab findings: Abnormal Labs 09/05/16 09/05/16 09/05/16 04:36 04:36 04:36 RBC Hgb 10.2 L Hct 30.2 L D MCV 81 L D MCH Plt Count Lymph % (Auto) 12.0 L [place] % (Auto) 11.8 H Lymph # [place] # 1.3 H Seg Neutrophils % 74.3 H Seg Neutrophils # 7.9 H POC ABG pH POC ABG pCO2 POC ABG pO2 Sodium Potassium 3.1 L Chloride 97.5 L Creatinine Glucose 156 H POC Glucose Phosphorus Magnesium 2.5 H Total Creatine Kinase Albumin 3.1 L 09/05/16 09/05/16 09/05/16 04:36 05:45 21:28 RBC Hgb Hct MCV MCH Plt Count Lymph % (Auto) [place] % (Auto) Lymph # [place] # Seg Neutrophils % Seg Neutrophils # POC ABG pH POC ABG pCO2 POC ABG pO2 178 H Sodium Potassium Chloride Creatinine Glucose POC Glucose 125 H Phosphorus 5.9 H D Magnesium Total Creatine Kinase Albumin 09/06/16 09/06/16 09/06/16 04:51 04:51 05:36 RBC 3.02 L Hgb 8.2 L Hct 25.0 L MCV 83 L MCH 27 L Plt Count Lymph % (Auto) [place] % (Auto) 12.0 H Lymph # 1.1 L [place] # 1.0 H Seg Neutrophils % Seg Neutrophils # POC ABG pH 7.341 L POC ABG pCO2 48.7 H POC ABG pO2 Sodium 135 L Potassium Chloride Creatinine 1.6 H Glucose 112 H POC Glucose Phosphorus Magnesium Total Creatine Kinase Albumin 09/06/16 09/06/16 09/06/16 13:45 21:54 21:58 RBC Hgb Hct MCV MCH Plt Count Lymph % (Auto) [place] % (Auto) Lymph # [place] # Seg Neutrophils % Seg Neutrophils # POC ABG pH POC ABG pCO2 POC ABG pO2 78 L Sodium Potassium Chloride Creatinine Glucose POC Glucose 141 H Phosphorus Magnesium Total Creatine Kinase 663 H Albumin 09/07/16 09/07/16 09/07/16 04:48 04:48 05:49 RBC 2.90 L Hgb 8.1 L Hct 23.9 L MCV 83 L MCH Plt Count Lymph % (Auto) 8.9 L [place] % (Auto) 10.4 H Lymph # 0.8 L [place] # 0.9 H Seg Neutrophils % 79.7 H Seg Neutrophils # POC ABG pH 7.468 H POC ABG pCO2 33.5 L POC ABG pO2 107 H Sodium Potassium Chloride Creatinine Glucose 105 H POC Glucose Phosphorus Magnesium Total Creatine Kinase Albumin 09/08/16 09/08/16 09/08/16 09:06 09:06 11:40 RBC 2.79 L Hgb 7.6 L Hct 22.9 L MCV 82 L MCH 27 L Plt Count Lymph % (Auto) 8.6 L [place] % (Auto) 10.3 H Lymph # 0.7 L [place] # 0.9 H Seg Neutrophils % 79.3 H Seg Neutrophils # POC ABG pH 7.471 H POC ABG pCO2 POC ABG pO2 Sodium 134 L Potassium Chloride 97.4 L Creatinine Glucose 106 H POC Glucose Phosphorus Magnesium Total Creatine Kinase Albumin 09/08/16 09/09/16 09/09/16 23:31 04:26 04:26 RBC 2.65 L Hgb 7.3 L Hct 22.1 L MCV 83 L MCH Plt Count Lymph % (Auto) 10.1 L [place] % (Auto) 10.9 H Lymph # 0.8 L [place] # 0.9 H Seg Neutrophils % 75.8 H Seg Neutrophils # POC ABG pH POC ABG pCO2 POC ABG pO2 Sodium 135 L Potassium Chloride 97.2 L Creatinine Glucose 113 H POC Glucose 131 H Phosphorus Magnesium Total Creatine Kinase Albumin 09/09/16 09/10/16 09/10/16 17:06 03:41 03:41 RBC 3.23 L Hgb 8.9 L Hct 26.7 L MCV 83 L MCH Plt Count 470 H Lymph % (Auto) 9.0 L [place] % (Auto) 8.9 H Lymph # 0.7 L [place] # Seg Neutrophils % 77.5 H Seg Neutrophils # POC ABG pH POC ABG pCO2 POC ABG pO2 75 L Sodium Potassium Chloride Creatinine Glucose 113 H POC Glucose Phosphorus Magnesium Total Creatine Kinase Albumin 09/10/16 05:58 RBC Hgb Hct MCV MCH Plt Count Lymph % (Auto) [place] % (Auto) Lymph # [place] # Seg Neutrophils % Seg Neutrophils # POC ABG pH 7.470 H POC ABG pCO2 POC ABG pO2 Sodium Potassium Chloride Creatinine Glucose POC Glucose Phosphorus Magnesium Total Creatine Kinase Albumin
[2016-09-10] MEDS ORDERED: NORMODYNE IV ONE ×2 (12:41→13:00)
[2016-09-10] MEDS: PEPCID PO SCH ×2 (13:17→22:10)
[2016-09-10] MEDS: LOPRESSOR PO SCH ×2 (13:17→22:08)
[2016-09-10] MEDS ORDERED: KEPPRA PO SCH (15:00)
--- NOTE | 2016-09-10 15:01 | Progress Note ---
Assessment and Plan Assessment and plan: Posterior Reversible Encephalopathy Syndrome - Supportive care - Control BP Acute respiratory failure 2/2 seizure disorder - Patient is extubated - Patient is on Keppra - Neurology consult appreciated - Chest x-ray normal Hypertensive emergency - Patient is on IV medications to control blood pressure - IV hydralazine, clonidine,cardene drip - We will monitor Hypokalemia - Repleted Acute kidney injury - Resolved Anemia - No active bleeding Disposition - Continue ICU care The high probability of a clinically significant, sudden or life threatening deterioration of the [Neurologic, respiratory, cardiovascular] system(s) required my full and direct attention, intervention and personal management. The aggregate critical care time was [34] minutes. This time is in addition to time spent performing reported procedures but includes the following: [x] Data Review and interpretation [x] Patient assessment and monitoring of vital signs [x] Documentation [x] Medication orders and management History Interval history: I have seen and evaluated the patient this morning. Patient extubated himself, patient is agitated and his blood pressure went up. Not in respiratory distress. Hospitalist Physical - Physical exam Narrative exam: Patient extubated not in respiratory distress Vital signs as documented. Head exam is unremarkable. Eyes: swollen , there is whitish tissue on the lower eyelid bilaterally, doesn' t look like it is infected. Neck is without jugular venous distension, thyromegaly, or carotid bruits. Lungs are clear to auscultation. Cardiac exam reveals regular rate and Rhythm. First and second heart sounds normal. No murmurs, rubs or gallops. Abdominal exam reveals normal bowel sounds, no masses, no organomegaly and no aortic enlargement. Extremities are nonedematous and both femoral and pedal pulses are normal. [employer]: lethargic but can take care of his airways. - Constitutional Vitals: Temp Pulse Resp BP Pulse Ox 98.7 F 101 H 24 185/110 97 09/10/16 12:00 09/10/16 14:30 09/10/16 14:30 09/10/16 14:30 09/10/16 14:30 Results - Labs CBC & Chem 7: 09/10/16 03:41 09/10/16 03:41 Labs: Laboratory Last Values WBC 8.3 K/mm3 (4.5-11.0) 09/10/16 03:41 RBC 3.23 M/mm3 (3.65-5.03) L 09/10/16 03:41 Hgb 8.9 gm/dl (11.8-15.2) L 09/10/16 03:41 Hct 26.7 % (35.5-45.6) L 09/10/16 03:41 MCV 83 fl (84-94) L 09/10/16 03:41 MCH 28 pg (28-32) 09/10/16 03:41 MCHC 34 % (32-34) 09/10/16 03:41 RDW 14.8 % (13.2-15.2) 09/10/16 03:41 Plt Count 470 K/mm3 (140-440) H 09/10/16 03:41 Lymph % (Auto) 9.0 % (13.4-35.0) L 09/10/16 03:41 [place] % (Auto) 8.9 % (0.0-7.3) H 09/10/16 03:41 Eos % (Auto) 4.2 % (0.0-4.3) 09/10/16 03:41 Baso % (Auto) 0.4 % (0.0-1.8) 09/10/16 03:41 Lymph # 0.7 K/mm3 (1.2-5.4) L 09/10/16 03:41 [place] # 0.7 K/mm3 (0.0-0.8) 09/10/16 03:41 Eos # 0.3 K/mm3 (0.0-0.4) 09/10/16 03:41 Baso # 0.0 K/mm3 (0.0-0.1) 09/10/16 03:41 Seg Neutrophils % 77.5 % (40.0-70.0) H 09/10/16 03:41 Seg Neutrophils # 6.4 K/mm3 (1.8-7.7) 09/10/16 03:41 POC ABG pH 7.470 (7.35-7.45) H 09/10/16 05:58 POC ABG pCO2 39.3 (35-45) 09/10/16 05:58 POC ABG pO2 84 (80-105) 09/10/16 05:58 POC ABG HCO3 28.6 09/10/16 05:58 POC ABG Total CO2 30 09/10/16 05:58 POC ABG O2 Sat 97 09/10/16 05:58 POC ABG Base Excess 5 09/10/16 05:58 FiO2 25 % 09/10/16 05:58 Sodium 141 mmol/L (137-145) 09/10/16 03:41 Potassium 3.8 mmol/L (3.6-5.0) 09/10/16 03:41 Chloride 100.2 mmol/L (98-107) 09/10/16 03:41 Carbon Dioxide 27 mmol/L (22-30) 09/10/16 03:41 Anion Gap 18 mmol/L 09/10/16 03:41 BUN 18 mg/dL (9-20) 09/10/16 03:41 Creatinine 0.9 mg/dL (0.8-1.5) 09/10/16 03:41 Estimated GFR > 60 ml/min 09/10/16 03:41 BUN/Creatinine Ratio 20.00 % 09/10/16 03:41 Glucose 113 mg/dL (75-100) H 09/10/16 03:41 POC Glucose 131 (70-105) H 09/08/16 23:31 Lactic Acid 1.0 mmol/L (0.7-2.0) 09/04/16 21:09 Calcium 8.8 mg/dL (8.4-10.2) 09/10/16 03:41 Phosphorus 5.9 mg/dL (2.5-4.5) H D 09/05/16 04:36 Magnesium 2.5 mg/dL (1.7-2.3) H 09/05/16 04:36 Total Bilirubin 0.4 mg/dL (0.1-1.2) 09/05/16 04:36 Direct Bilirubin < 0.2 mg/dL (0-0.2) 09/04/16 16:20 Indirect Bilirubin 0.5 mg/dL 09/04/16 16:20 AST 15 units/L (5-40) 09/05/16 04:36 ALT 9 units/L (7-56) 09/05/16 04:36 Alkaline Phosphatase 75 units/L (35-129) 09/05/16 04:36 Total Creatine Kinase 663 units/L (55-170) H 09/06/16 21:58 Total Protein 6.6 g/dL (6.3-8.2) 09/05/16 04:36 Albumin 3.1 g/dL (3.9-5) L 09/05/16 04:36 Albumin/Globulin Ratio 0.9 % 09/05/16 04:36 TSH 2.280 mlU/mL (0.270-4.200) 09/04/16 16:20 Urine Color Yellow (Yellow) 09/04/16 16:31 Urine Turbidity Clear (Clear) 09/04/16 16:31 Urine pH 6.0 (5.0-7.0) 09/04/16 16:31 Ur Specific [place] 1.018 (1.003-1.030) 09/04/16 16:31 Urine Protein >500 mg/dL (Negative) 09/04/16 16:31 Urine Glucose (UA) Neg mg/dL (Negative) 09/04/16 16:31 Urine Ketones Neg mg/dL (Negative) 09/04/16 16:31 Urine Blood Sm (Negative) 09/04/16 16:31 Urine Nitrite Neg (Negative) 09/04/16 16:31 Urine Bilirubin Neg (Negative) 09/04/16 16:31 Urine Urobilinogen 4.0 mg/dL (<2.0) 09/04/16 16:31 Ur Leukocyte Esterase Neg (Negative) 09/04/16 16:31 Urine WBC (Auto) 4.0 /HPF (0.0-6.0) 09/04/16 16:31 Urine RBC (Auto) 6.0 /HPF (0.0-6.0) 09/04/16 16:31 U Epithel Cells (Auto) 1.0 /HPF (0-13.0) 09/04/16 16:31 Amorphous Crystals Few 09/04/16 16:31 Granular Casts 6 /LPF 09/04/16 16:31 Urine Mucus Few /HPF 09/04/16 16:31 Salicylates < 0.3 mg/dL (2.8-20.0) L 09/04/16 16:20 Urine Opiates Screen Presumptive negative 09/04/16 16:31 Urine Methadone Screen Presumptive negative 09/04/16 16:31 Acetaminophen < 15.0 ug/mL (10.0-30.0) 09/04/16 16:20 Ur Barbiturates Screen Presumptive negative 09/04/16 16:31 Ur Phencyclidine Scrn Presumptive negative 09/04/16 16:31 Ur Amphetamines Screen Presumptive negative 09/04/16 16:31 U Benzodiazepines Scrn Presumptive negative 09/04/16 16:31 Urine Cocaine Screen Presumptive negative 09/04/16 16:31 U Marijuana (THC) Screen Presumptive positive 09/04/16 16:31 Drugs of Abuse Note Disclamer 09/04/16 16:31 Plasma/Serum Alcohol < 0.01 gm% (0-0.07) 09/04/16 16:20
[2016-09-10] MEDS: CARDENE DRIP 40 MG/200 ML 200 ML IV SCH (15:03)
[2016-09-10] MEDS: APRESOLINE PO SCH (23:57)
[2016-09-11] MEDS: TOBRADEX OU SCH ×6 (03:28→21:26)
[2016-09-11 05:02] LABS: Basophils % (Auto) 0.4 % (0.0-1.8); Eosinophils % (Auto) 4.9 % (0.0-4.3); Hematocrit 23.3 % (35.5-45.6); Hemoglobin 7.9 gm/dl (11.8-15.2); Mean Corpuscular HGB Conc 34 % (32-34); Mean Corpuscular Hemoglobin 28 pg (28-32); Mean Corpuscular Volume 83 fl (84-94); Platelet Count 526 K/mm3 (140-440); Red Cell Distribution Width 14.5 % (13.2-15.2); White Blood Count 8.4 K/mm3 (4.5-11.0)
[2016-09-11 05:22] LABS: Blood Urea Nitrogen 15 mg/dL (9-20); Calcium 8.8 mg/dL (8.4-10.2); Carbon Dioxide 27 mmol/L (22-30); Chloride 100.5 mmol/L (98-107); Glucose 106 mg/dL (75-100); Sodium 141 mmol/L (137-145)
[2016-09-11 05:24] LABS: Anion Gap 18 mmol/L
[2016-09-11] MEDS: CATAPRES PO SCH ×3 (06:11→21:23)
[2016-09-11] MEDS: APRESOLINE PO SCH ×3 (06:11→21:22)
[2016-09-11] MEDS: LOPRESSOR PO SCH ×2 (09:46→21:22)
[2016-09-11] MEDS: LOVENOX SUB-Q SCH (09:46)
[2016-09-11] MEDS: PEPCID PO SCH ×2 (09:46→21:22)
--- NOTE | 2016-09-11 12:58 | Progress Note ---
Assessment and Plan - Patient Problems (1) Hypertensive emergency Current Visit: Yes Status: Acute Plan to address problem: - improved - continue prn hydralazine IB - schedule oral hydralazine - prn analgesia (2) Status epilepticus Current Visit: Yes Status: Acute Plan to address problem: - MRI reviewed and without major pathology - clinically much improved - no clinical seizures - neurology notes reviewed - Discontinued Keppra with prn ativan in short term (3) Acute respiratory failure Current Visit: Yes Status: Acute Qualifiers: Respiratory failure complication: R Plan to address problem: - AMS much improved and will give a trial of extubation if passes SBT in am - continue aspiration precautions - prn bronchodilators - self extubated - weaning off oxygen (4) Discharge planning issues Current Visit: Yes Status: Acute Plan to address problem: - transfer to floor shortly Subjective Date of service: 09/11/16 Principal diagnosis: Acute Respiratory Failure; Seizures Interval history: Seen and examined at bedside; 24 hour events reviewed; nursing and respiratory care staff consulted; no adverse overnight events reported to me; doing better however still running high BP's; denies acute chest pains or incraesed SOB Objective Vital Signs - 12hr 09/11/16 09/11/16 09/11/16 01:00 01:16 01:30 Temperature Pulse Rate 77 78 75 Respiratory 23 22 16 Rate Blood Pressure 131/85 141/90 155/82 O2 Sat by Pulse 98 98 98 Oximetry 09/11/16 09/11/16 09/11/16 01:45 02:00 02:16 Temperature Pulse Rate 77 78 78 Respiratory 21 18 17 Rate Blood Pressure 146/93 150/95 150/95 O2 Sat by Pulse 98 97 98 Oximetry 09/11/16 09/11/16 09/11/16 02:30 02:45 03:00 Temperature Pulse Rate 77 79 79 Respiratory 14 20 21 Rate Blood Pressure 148/94 144/93 147/93 O2 Sat by Pulse 98 98 98 Oximetry 09/11/16 09/11/16 09/11/16 03:16 03:30 03:45 Temperature Pulse Rate 83 82 85 Respiratory 22 18 19 Rate Blood Pressure 158/93 157/99 152/92 O2 Sat by Pulse 98 98 98 Oximetry 09/11/16 09/11/16 09/11/16 03:46 04:00 04:16 Temperature 98.1 F Pulse Rate 84 83 Respiratory 20 19 Rate Blood Pressure 149/87 147/86 O2 Sat by Pulse 97 99 Oximetry 09/11/16 09/11/16 09/11/16 04:30 04:46 05:00 Temperature Pulse Rate 86 90 83 Respiratory 20 20 20 Rate Blood Pressure 151/97 157/97 152/97 O2 Sat by Pulse 98 96 98 Oximetry 09/11/16 09/11/16 09/11/16 05:10 05:15 05:30 Temperature Pulse Rate 87 85 88 Respiratory 19 19 17 Rate Blood Pressure 152/97 156/97 163/113 O2 Sat by Pulse 98 98 97 Oximetry 09/11/16 09/11/16 09/11/16 05:45 06:00 06:11 Temperature Pulse Rate 84 86 84 Respiratory 19 16 Rate Blood Pressure 161/101 153/99 153/99 O2 Sat by Pulse 98 99 Oximetry 09/11/16 09/11/16 09/11/16 06:15 06:18 06:30 Temperature Pulse Rate 82 82 83 Respiratory 13 19 19 Rate Blood Pressure 168/112 168/112 O2 Sat by Pulse 97 98 99 Oximetry 09/11/16 09/11/16 09/11/16 06:45 06:52 07:00 Temperature Pulse Rate 84 83 83 Respiratory 17 18 17 Rate Blood Pressure 154/107 154/103 145/100 O2 Sat by Pulse 98 98 99 Oximetry 09/11/16 09/11/16 09/11/16 07:15 07:30 07:45 Temperature Pulse Rate 83 81 80 Respiratory 21 20 18 Rate Blood Pressure 147/94 147/94 130/75 O2 Sat by Pulse 98 98 98 Oximetry 09/11/16 09/11/16 09/11/16 08:00 08:16 08:30 Temperature 98.6 F Pulse Rate 76 79 78 Respiratory 18 12 17 Rate Blood Pressure 130/75 156/98 159/95 O2 Sat by Pulse 92 99 99 Oximetry 09/11/16 09/11/16 09/11/16 08:34 08:46 09:00 Temperature Pulse Rate 80 79 76 Respiratory 19 14 15 Rate Blood Pressure 159/95 156/97 160/103 O2 Sat by Pulse 98 99 99 Oximetry 09/11/16 09/11/16 09/11/16 09:15 09:30 09:42 Temperature Pulse Rate 77 78 Respiratory 16 17 Rate Blood Pressure 165/101 148/105 O2 Sat by Pulse 99 98 99 Oximetry 09/11/16 09/11/16 09/11/16 09:46 10:00 10:16 Temperature Pulse Rate 82 77 78 Respiratory 21 17 13 Rate Blood Pressure 165/101 141/81 148/105 O2 Sat by Pulse 100 99 99 Oximetry 09/11/16 09/11/16 09/11/16 10:30 10:46 11:00 Temperature Pulse Rate 81 80 74 Respiratory 17 18 16 Rate Blood Pressure 148/105 148/105 150/112 O2 Sat by Pulse 99 99 99 Oximetry 09/11/16 09/11/16 09/11/16 11:16 11:30 11:46 Temperature Pulse Rate 74 71 72 Respiratory 13 19 18 Rate Blood Pressure 150/112 153/103 153/103 O2 Sat by Pulse 99 99 100 Oximetry 09/11/16 12:00 Temperature 98.6 F Pulse Rate 71 Respiratory 18 Rate Blood Pressure 151/105 O2 Sat by Pulse 99 Oximetry Constitutional: no acute distress, other (somnolent) Eyes: non-icteric ENT: oropharynx moist Neck: supple, no lymphadenopathy Effort: normal Ascultation: Bilateral: clear, rhonchi (scant) Cardiovascular: regular rate and rhythm Gastrointestinal: normoactive bowel sounds, soft, non-tender, non-distended Integumentary: normal Extremities: no cyanosis, no edema, pulses normal, no ischemia or petechiae Neurologic: normal mental status, non-focal exam, pupils equal and round, other (weak) Psychiatric: mood appropriate, affect normal CBC and BMP: 09/11/16 04:36 09/11/16 04:36 ABG, PT/INR, D-dimer: ABG POC ABG pH 7.470 (7.35-7.45) H 09/10/16 05:58 POC ABG pCO2 39.3 (35-45) 09/10/16 05:58 POC ABG pO2 84 (80-105) 09/10/16 05:58 POC ABG HCO3 28.6 09/10/16 05:58 POC ABG Total CO2 30 09/10/16 05:58 POC ABG O2 Sat 97 09/10/16 05:58 Abnormal lab findings: Abnormal Labs 09/05/16 09/05/16 09/05/16 04:36 04:36 04:36 RBC Hgb 10.2 L Hct 30.2 L D MCV 81 L D MCH Plt Count Lymph % (Auto) 12.0 L [place] % (Auto) 11.8 H Eos % (Auto) Lymph # [place] # 1.3 H Seg Neutrophils % 74.3 H Seg Neutrophils # 7.9 H POC ABG pH POC ABG pCO2 POC ABG pO2 Sodium Potassium 3.1 L Chloride 97.5 L Creatinine Glucose 156 H POC Glucose Phosphorus Magnesium 2.5 H Total Creatine Kinase Albumin 3.1 L 09/05/16 09/05/16 09/05/16 04:36 05:45 21:28 RBC Hgb Hct MCV MCH Plt Count Lymph % (Auto) [place] % (Auto) Eos % (Auto) Lymph # [place] # Seg Neutrophils % Seg Neutrophils # POC ABG pH POC ABG pCO2 POC ABG pO2 178 H Sodium Potassium Chloride Creatinine Glucose POC Glucose 125 H Phosphorus 5.9 H D Magnesium Total Creatine Kinase Albumin 09/06/16 09/06/16 09/06/16 04:51 04:51 05:36 RBC 3.02 L Hgb 8.2 L Hct 25.0 L MCV 83 L MCH 27 L Plt Count Lymph % (Auto) [place] % (Auto) 12.0 H Eos % (Auto) Lymph # 1.1 L [place] # 1.0 H Seg Neutrophils % Seg Neutrophils # POC ABG pH 7.341 L POC ABG pCO2 48.7 H POC ABG pO2 Sodium 135 L Potassium Chloride Creatinine 1.6 H Glucose 112 H POC Glucose Phosphorus Magnesium Total Creatine Kinase Albumin 09/06/16 09/06/16 09/06/16 13:45 21:54 21:58 RBC Hgb Hct MCV MCH Plt Count Lymph % (Auto) [place] % (Auto) Eos % (Auto) Lymph # [place] # Seg Neutrophils % Seg Neutrophils # POC ABG pH POC ABG pCO2 POC ABG pO2 78 L Sodium Potassium Chloride Creatinine Glucose POC Glucose 141 H Phosphorus Magnesium Total Creatine Kinase 663 H Albumin 09/07/16 09/07/16 09/07/16 04:48 04:48 05:49 RBC 2.90 L Hgb 8.1 L Hct 23.9 L MCV 83 L MCH Plt Count Lymph % (Auto) 8.9 L [place] % (Auto) 10.4 H Eos % (Auto) Lymph # 0.8 L [place] # 0.9 H Seg Neutrophils % 79.7 H Seg Neutrophils # POC ABG pH 7.468 H POC ABG pCO2 33.5 L POC ABG pO2 107 H Sodium Potassium Chloride Creatinine Glucose 105 H POC Glucose Phosphorus Magnesium Total Creatine Kinase Albumin 09/08/16 09/08/16 09/08/16 09:06 09:06 11:40 RBC 2.79 L Hgb 7.6 L Hct 22.9 L MCV 82 L MCH 27 L Plt Count Lymph % (Auto) 8.6 L [place] % (Auto) 10.3 H Eos % (Auto) Lymph # 0.7 L [place] # 0.9 H Seg Neutrophils % 79.3 H Seg Neutrophils # POC ABG pH 7.471 H POC ABG pCO2 POC ABG pO2 Sodium 134 L Potassium Chlor[place] 97.4 L Creatinine Glucose 106 H POC Glucose Phosphorus Magnesium Total Creatine Kinase Albumin 09/08/16 09/09/16 09/09/16 23:31 04:26 04:26 RBC 2.65 L Hgb 7.3 L Hct 22.1 L MCV 83 L MCH Plt Count Lymph % (Auto) 10.1 L [place] % (Auto) 10.9 H Eos % (Auto) Lymph # 0.8 L [place] # 0.9 H Seg Neutrophils % 75.8 H Seg Neutrophils # POC ABG pH POC ABG pCO2 POC ABG pO2 Sodium 135 L Potassium Chloride 97.2 L Creatinine Glucose 113 H POC Glucose 131 H Phosphorus Magnesium Total Creatine Kinase Albumin 09/09/16 09/10/16 09/10/16 17:06 03:41 03:41 RBC 3.23 L Hgb 8.9 L Hct 26.7 L MCV 83 L MCH Plt Count 470 H Lymph % (Auto) 9.0 L [place] % (Auto) 8.9 H Eos % (Auto) Lymph # 0.7 L [place] # Seg Neutrophils % 77.5 H Seg Neutrophils # POC ABG pH POC ABG pCO2 POC ABG pO2 75 L Sodium Potassium Chloride Creatinine Glucose 113 H POC Glucose Phosphorus Magnesium Total Creatine Kinase Albumin 09/10/16 09/11/16 09/11/16 05:58 04:36 04:36 RBC 2.80 L Hgb 7.9 L Hct 23.3 L MCV 83 L MCH Plt Count 526 H Lymph % (Auto) [place] % (Auto) 10.6 H Eos % (Auto) 4.9 H Lymph # [place] # 0.9 H Seg Neutrophils % Seg Neutrophils # POC ABG pH 7.470 H POC ABG pCO2 POC ABG pO2 Sodium Potassium Chloride Creatinine Glucose 106 H POC Glucose Phosphorus Magnesium Total Creatine Kinase Albumin
--- NOTE | 2016-09-12 14:07 | Progress Note ---
Assessment and Plan - Patient Problems (1) Hypertensive emergency Current Visit: Yes Status: Acute (2) Status epilepticus Current Visit: Yes Status: Acute (3) Acute respiratory failure Current Visit: Yes Status: Acute Qualifiers: Respiratory failure complication: R (4) Discharge planning issues Current Visit: Yes Status: Acute Subjective Date of service: 09/12/16 Principal diagnosis: Acute Respiratory Failure; Seizures Objective Constitutional: no acute distress, other (somnolent) Eyes: non-icteric ENT: oropharynx moist Neck: supple, no lymphadenopathy Effort: normal Ascultation: Bilateral: clear, rhonchi Cardiovascular: regular rate and rhythm Gastrointestinal: normoactive bowel sounds, soft, non-tender, non-distended Integumentary: normal Extremities: no cyanosis, no edema, pulses normal, no ischemia or petechiae Neurologic: normal mental status, non-focal exam, pupils equal and round, other (weak) Psychiatric: mood appropriate, affect normal CBC and BMP: 09/11/16 04:36 09/11/16 04:36 ABG, PT/INR, D-dimer: ABG POC ABG pH 7.470 (7.35-7.45) H 09/10/16 05:58 POC ABG pCO2 39.3 (35-45) 09/10/16 05:58 POC ABG pO2 84 (80-105) 09/10/16 05:58 POC ABG HCO3 28.6 09/10/16 05:58 POC ABG Total CO2 30 09/10/16 05:58 POC ABG O2 Sat 97 09/10/16 05:58 Abnormal lab findings: Abnormal Labs 09/05/16 09/05/16 09/05/16 04:36 04:36 04:36 RBC Hgb 10.2 L Hct 30.2 L D MCV 81 L D MCH Plt Count Lymph % (Auto) 12.[address] [place] % (Auto) 11.8 H Eos % (Auto) Lymph # [place] # 1.3 H Seg Neutrophils % 74.3 H Seg Neutrophils # 7.9 H POC ABG pH POC ABG pCO2 POC ABG pO2 Sodium Potassium 3.1 L Chloride 97.5 L Creatinine Glucose 156 H POC Glucose Phosphorus Magnesium 2.5 H Total Creatine Kinase Albumin 3.1 L 09/05/16 09/05/16 09/05/16 04:36 05:45 21:28 RBC Hgb Hct MCV MCH Plt Count Lymph % (Auto) [place] % (Auto) Eos % (Auto) Lymph # [place] # Seg Neutrophils % Seg Neutrophils # POC ABG pH POC ABG pCO2 POC ABG pO2 178 H Sodium Potassium Chloride Creatinine Glucose POC Glucose 125 H Phosphorus 5.9 H D Magnesium Total Creatine Kinase Albumin 09/06/16 09/06/16 09/06/16 04:51 04:51 05:36 RBC 3.02 L Hgb 8.2 L Hct 25.0 L MCV 83 L MCH 27 L Plt Count Lymph % (Auto) [place] % (Auto) 12.0 H Eos % (Auto) Lymph # 1.[address] [place] # 1.0 H Seg Neutrophils % Seg Neutrophils # POC ABG pH 7.341 L POC ABG pCO2 48.7 H POC ABG pO2 Sodium 135 L Potassium Chloride Creatinine 1.6 H Glucose 112 H POC Glucose Phosphorus Magnesium Total Creatine Kinase Albumin 09/06/16 09/06/16 09/06/16 13:45 21:54 21:58 RBC Hgb Hct MCV MCH Plt Count Lymph % (Auto) [place] % (Auto) Eos % (Auto) Lymph # [facility] # Seg Neutrophils % Seg Neutrophils # POC ABG pH POC ABG pCO2 POC ABG pO2 78 L Sodium Potassium Chloride Creatinine Glucose POC Glucose 141 H Phosphorus Magnesium Total Creatine Kinase 663 H Albumin 09/07/16 09/07/16 09/07/16 04:48 04:48 05:49 RBC 2.90 L Hgb 8.1 L Hct 23.9 L MCV 83 L MCH Plt Count Lymph % (Auto) 8.[address] % (Auto) 10.4 H Eos % (Auto) Lymph # 0.[address] # 0.9 H Seg Neutrophils % 79.7 H Seg Neutrophils # POC ABG pH 7.468 H POC ABG pCO2 33.5 L POC ABG pO2 107 H Sodium Potassium Chloride Creatinine Glucose 105 H POC Glucose Phosphorus Magnesium Total Creatine Kinase Albumin 09/08/16 09/08/16 09/08/16 09:06 09:06 11:40 RBC 2.79 L Hgb 7.6 L Hct 22.9 L MCV 82 L MCH 27 L Plt Count Lymph % (Auto) 8.[address] % (Auto) 10.3 H Eos % (Auto) Lymph # 0.[address] # 0.9 H Seg Neutrophils % 79.3 H Seg Neutrophils # POC ABG pH 7.471 H POC ABG pCO2 POC ABG pO2 Sodium 134 L Potassium Chloride 97.4 L Creatinine Glucose 106 H POC Glucose Phosphorus Magnesium Total Creatine Kinase Albumin 09/08/16 09/09/16 09/09/16 23:31 04:26 04:26 RBC 2.65 L Hgb 7.3 L Hct 22.1 L MCV 83 L MCH Plt Count Lymph % (Auto) 10.[address] % (Auto) 10.9 H Eos % (Auto) Lymph # 0.[address] [place] # 0.9 H Seg Neutrophils % 75.8 H Seg Neutrophils # POC ABG pH POC ABG pCO2 POC ABG pO2 Sodium 135 L Potassium Chloride 97.2 L Creatinine Glucose 113 H POC Glucose 131 H Phosphorus Magnesium Total Creatine Kinase Albumin 09/09/16 09/10/16 09/10/16 17:06 03:41 03:41 RBC 3.23 L Hgb 8.9 L Hct 26.7 L MCV 83 L MCH Plt Count 470 H Lymph % (Auto) 9.[address] % (Auto) 8.9 H Eos % (Auto) Lymph # 0.[address] [place] # Seg Neutrophils % 77.5 H Seg Neutrophils # POC ABG pH POC ABG pCO2 POC ABG pO2 75 L Sodium Potassium Chloride Creatinine Glucose 113 H POC Glucose Phosphorus Magnesium Total Creatine Kinase Albumin 09/10/16 09/11/16 09/11/16 05:58 04:36 04:36 RBC 2.80 L Hgb 7.9 L Hct 23.3 L MCV 83 L MCH Plt Count 526 H Lymph % (Auto) [facility] % (Auto) 10.6 H Eos % (Auto) 4.9 H Lymph # [facility] # 0.9 H Seg Neutrophils % Seg Neutrophils # POC ABG pH 7.470 H POC ABG pCO2 POC ABG pO2 Sodium Potassium Chloride Creatinine Glucose 106 H POC Glucose Phosphorus Magnesium Total Creatine Kinase Albumin
[2016-09-12] MEDS: APRESOLINE PO SCH ×2 (16:37→22:12)
[2016-09-12] MEDS: TOBRADEX OU SCH ×3 (16:39→23:55)
[2016-09-12] MEDS: CATAPRES PO SCH ×2 (16:40→22:12)
[2016-09-12] MEDS: LOPRESSOR PO SCH ×2 (16:43→22:13)
[2016-09-12] MEDS: LOVENOX SUB-Q SCH (16:44)
[2016-09-12] MEDS: PEPCID PO SCH ×2 (16:44→22:00)
[2016-09-13] MEDS: TOBRADEX OU SCH (09:49)
[2016-09-13] MEDS: LOPRESSOR PO SCH (09:49)
[2016-09-13] MEDS: PEPCID PO SCH (09:49)
[2016-09-13] MEDS: LOVENOX SUB-Q SCH (09:50)
[2016-09-13] MEDS ORDERED: PROCARDIA XL PO SCH (11:30)
[2016-09-13] MEDS: CATAPRES PO SCH (12:40)
[2016-09-13] MEDS: APRESOLINE PO SCH (12:40)
[2016-09-13 15:54] VITALS: BP 148/80
== END 2016-09-13 16:19 | disposition home or self-care (01) | DRG 207 ==
LOC: ED 16:03 → CC1 20:52 → 3A 09-12 22:38
PROVIDERS: ADMIT Internal Medicine; ATTEND Internal Medicine
PROC: 5A1955Z Respiratory Ventilation, Greater than 96 Consecutive Hours (ICD-10-PCS; principal; 2016-09-04)
PROC: 0BH17EZ Insertion of Endotracheal Airway into Trachea, Via Natural or Artificial Opening (ICD-10-PCS; 2016-09-04)
DX: J96.00 Acute respiratory failure, unspecified whether with hypoxia or hypercapnia (principal); I67.83 Posterior reversible encephalopathy syndrome; I16.1 Hypertensive emergency; N17.9 Acute kidney failure, unspecified; G40.901 Epilepsy, unspecified, not intractable, with status epilepticus; E87.6 Hypokalemia; I10 Essential (primary) hypertension; D64.9 Anemia, unspecified; E83.39 Other disorders of phosphorus metabolism; Z91.14 Patient's other noncompliance with medication regimen; Z82.49 Family history of ischemic heart disease and other diseases of the circulatory system
CPT/HCPCS: 36415; 36600; 70450; 70551; 71010; 74000; 80048; 80053; 80074; 80307; 80320; 81001; 82140; 82550; 82803; 82962; 83735; 84100; 84443; 85025; 87040; 93005; 93010; 94002; 94003; 94760; 95819; 96374; 96375; G0480; J0330; J0360; J1170; J1650; J1953; J2060; J2704; J3010; J3475; J7040